=== PATIENT | male | born 1940 | race Caucasian/White ===

== ENCOUNTER 2020-11-22 20:33 | Inpatient (IN) ==
[2020-11-22] MEDS ORDERED: HYDROCODONE/ACETAMOPHEN 5/325MG TAB PO STA (21:17)
[2020-11-22 23:07] LABS: Appearance Urine Cloudy (Clear); Bilirubin Urine Negative (Negative); Blood Urine 3+ (Negative); Color Urine Red; Glucose Urine UA Trace (Negative); Ketones Urine Negative (Negative); Leukocyte Esterase Urine Trace (Negative); Nitrite Urine Negative (Negative); Protein Urine 3+ (Negative); Urobilinogen Urine Negative (Negative); pH Urine 7.5 (4.5-7.5)
[2020-11-22 23:13] LABS: RBC Urine >30 /hpf (0-4)
[2020-11-22 23:14] LABS: WBC Urine >30 /hpf (0-5)
[2020-11-22 23:15] LABS: Bacteria Urine 1+ (Negative)
[2020-11-23 01:21] LABS: Basophils # (auto) 0.01 K/uL (0-0.2); Basophils % (auto) 0.1 %; Eosinophils # (auto) 0.15 K/uL (0-0.5); Eosinophils % (auto) 1.6 %; Hematocrit (blood only) 23.5 % (42-52); Hemoglobin 7.5 g/dL (14.0-18.0); Immature Granulocytes # (auto) 0.06 K/uL (0.00-0.02); Immature Granulocytes % (auto) 0.6 %; Lymphocytes # (auto) 0.91 K/uL (1.2-3.4); Lymphocytes % (auto) 9.5 %; Mean Corpuscular Hemoglobin 30.1 pg (25-34); Mean Corpuscular Hgb Conc 31.9 g/dL (32-36); Mean Corpuscular Volume 94.4 fL (80-100); Monocytes # (auto) 0.58 K/uL (0.11-0.59); Neutrophils # (auto) 7.89 K/uL (1.4-6.5); Neutrophils % (auto) 82.2 %; Platelet Count 157 K/uL (130-400); RDW Coefficient of Variation 15.7 % (11.5-14.5); RDW Standard Deviation 53.7 fL (36.4-46.3); Red Blood Count 2.49 M/uL (4.7-6.1)
--- NOTE | 2020-11-23 01:22 | Emergency Department Note ---
Impression & Plan Acute urinary retention ED Provider Note INFORMANT: Patient and significant other ED PROVIDER(S): Alejandro Jacobson MD CHIEF COMPLAINT: Urinary retention PLAN: Disposition: Admitted Condition: Good Outpatient prescription management: none Referral: None MEDICAL DECISION MAKING: Patient presented because of urinary retention. Bladder scan revealed almost 800 mL of urine. A Jimenez catheter was placed by nursing. He had significant blood and blood clots present. This obstructed the catheter. He had multiple irrigation attempts performed. Significant clot was resulted each time. The patient did feel better. He did request analgesia was given an oral [place]. The patient had renal insufficiency noted on his blood work. He does not feel well enough to go home and is concerned about the catheter blocking. The patient's catheter did require additional flushing. I suspect he has a significant amount of bleeding of blood clots in the bladder and this is causing the catheter obstruction. Consultation was made with Dr. Bravo of urology. He recommended supportive care, admission and every hour bladder irrigations if necessary. Patient will be seen in consultation. Consultation was made with Dr. Froylan Abdul of the [facility] service. Patient was evaluated in the ER for further management. Triage Nursing notes reviewed and agree them. Vital Signs: reviewed and remarkable for no significant abnormalities Differential diagnosis: obstruction, dehydration, urinary tract infection, urinary retention, acute kidney injury, as well as other pathologies. Diagnostics interpreted by me: ECG: none Cardiac Monitoring: none Imaging studies: None ordered HPI: The patient is a 80 year old male who presents to the Emergency Room with complaints of inability to void. This started this morning and is persisting throughout the day. The patient also notes the following associated symptoms, blood and blood clots in the urine. The patient has found no relieving factors. Current pain is rated as 7/10. Patient states he is unable to void and has developed suprapubic abdominal discomfort and bloating. Pt denies LOC, headache, fevers, chills, diaphoresis, visual changes, neck pain, chest pain, breathing difficulties, nausea, vomiting, abdominal pain, back pain, melena, hematochezia, urinary symptoms, numbness, weakness, lymphadenopathy, rash, or other complaints. ROS: See above HPI for pertinent positives & negatives. A total of 10 systems reviewed and were otherwise negative. PAST MEDICAL HISTORY:See Below , end-stage renal disease, hypertension PAST SURGICAL HISTORY:See Below, kidney transplant FAMILY HISTORY:See Below SOCIAL HISTORY:See Below, former smoker HOME MEDICATIONS:See Below ALLERGIES:See Below VITALS:See below PHYSICAL EXAMINATION: GENERAL: Awake, alert, uncomfortable-appearing, in no distress HENT: Normocephalic, atraumatic. Oropharynx unremarkable. EYES: Normal conjunctiva. Sclera non-icteric. NECK: Inspection normal. Non-tender. Supple. No nuchal rigidity. FROM. No masses. RESPIRATORY: Clear to auscultation. No wheezes. No rales. Normal respiratory effort. CARDIAC: Normal rate. Normal rhythm. No murmurs. No rubs. Extremities warm and well perfused. Pulses equal. No JVD. GI: Soft, non-distended. Suprapubic tenderness to palpation. No rebound or guarding. No masses. RECTAL: Deferred. : Normal male. MUSCULOSKELETAL: Atraumatic. Chest examination reveals no tenderness. The back is symmetrical on inspection without obvious abnormality. There is no CVA tenderness to palpation. No joint edema. LOWER EXTREMITIES: Calves are equal size bilaterally and non-tender. No edema. No discoloration. NEURO: Normal sensorium. No sensory or motor deficits noted. SKIN: No rash or jaundice noted. Alejandro Jacobson MD Past Med/Surg History Medical History Arthritis Calcaneus fracture Diabetes Gout Heart trouble Hypertension Kidney failure Kidney stones Pacemaker Seizure Surgical History H/O left knee surgery H/O umbilical hernia repair History of carpal tunnel surgery History of heart artery stent History of left knee replacement Kidney transplant recipient Previous back surgery S/P trigger finger release Family History Mother Diabetes Hypertension Father Diabetes Hypertension Brother Diabetes Hypertension Cancer Sister Diabetes Hypertension Cancer Social History Smoking Status: Former smoker Hx Alcohol Use: No Preferred Language: Maori Feels Safe at Home: Yes Allergies Allergies Allergy/AdvReac Type Severity Reaction Status Date / Time lisinopril Allergy Unknown ORAL EDEMA Verified 11/23/20 00:58 Uhghrrm-Ygl-Pzj Reductase AdvReac Intermediate MUSCLE Verified 11/23/20 00:58 Inhibitor WEAKNESS NSAIDS (Non-Steroidal AdvReac Unknown KIDNEY Verified 11/23/20 00:58 Anti-Inflamma TRANSPLANT Home Meds Home Medications Medication Instructions Recorded Confirmed allopurinol 300 mg tablet 150 mg PO DAILY tab 11/03/20 11/23/20 amlodipine 5 mg tablet 5 mg PO DAILY 11/03/20 11/23/20 aspirin 81 mg tablet,delayed 81 mg PO DAILY 11/03/20 11/23/20 release (Adult Low Dose Aspirin) carvedilol 3.125 mg tablet 3.125 mg PO DAILY tab 11/03/20 11/23/20 cholecalciferol (vitamin D3) 50 50 mcg PO DAILY 11/03/20 11/23/20 mcg (2,000 unit) capsule ezetimibe 10 mg tablet (Zetia) 10 mg PO DAILY 11/03/20 11/23/20 lamotrigine 25 mg tablet 50 mg PO BID tab 11/03/20 11/23/20 mycophenolate mofetil 250 mg 750 mg PO BID cap 11/03/20 11/23/20 capsule (CellCept) omeprazole 20 mg capsule,delayed 20 mg PO DAILY 11/03/20 11/23/20 release primidone 50 mg tablet 100 mg PO BID tab 11/03/20 11/23/20 sertraline 25 mg tablet (Zoloft) 25 mg PO DAILY 11/03/20 11/23/20 sulfamethoxazole 400 1 tab PO 3XWK tab 11/03/20 11/23/20 mg-trimethoprim 80 mg tablet (Bactrim) tacrolimus 1 mg capsule, 2 mg PO Q12H cap 11/03/20 11/23/20 immediate-release (Prograf) tamsulosin 0.4 mg capsule 0.4 mg PO DAILY 11/03/20 11/23/20 torsemide 20 mg tablet 40 mg PO DAILY tab 11/03/20 11/23/20 insulin NPH isoph U-100 human 100 15 unit SUBCUT BID 11/23/20 11/23/20 unit/mL (3 mL) subcutaneous pen (Novolin N Flexpen) insulin regular human 100 unit/mL 1 sliding scale dose SUBCUT 11/23/20 11/23/20 (3 mL) subcutaneous pen (Novolin R USEASDIRECTD Flexpen) Previous Rx's Medication Instructions Recorded finasteride 5 mg tablet 5 mg PO DAILY #90 tab 11/15/20 fluconazole 200 mg tablet 100 mg PO DAILY #4 tab 11/22/20 (Diflucan) Results & Data (ED) Vital Signs Vital Signs - 24 hr 11/22/20 20:36 11/22/20 22:13 11/23/20 00:29 Temperature 36.5 C 36.5 C Temperature Source Temporal Artery Scan Oral Pulse Rate 81 Pulse Rate [Left Radial] 63 60 Respiratory Rate 24 22 22 Blood Pressure 134/60 Blood Pressure [Right Arm] 161/57 H 130/85 Blood Pressure Mean 84 Blood Pressure Mean [Right Arm] 91 100 Pulse Oximetry 100 95 95 Oxygen Delivery Method Nasal Cannula Nasal Cannula Nasal Cannula Oxygen Flow Rate 3 3 3 Sepsis New/Unexplained Change in Mental Status N/A Sepsis Action Taken by Nursing No Action Required 11/23/20 01:08 11/23/20 02:11 Temperature Temperature Source Pulse Rate 81 Pulse Rate [Left Radial] 75 Respiratory Rate 22 22 Blood Pressure Blood Pressure [Right Arm] 140/92 Blood Pressure Mean Blood Pressure Mean [Right Arm] 108 Pulse Oximetry 95 95 Oxygen Delivery Method Nasal Cannula Nasal Cannula Oxygen Flow Rate 3 3 Sepsis New/Unexplained Change in Mental Status Sepsis Action Taken by Nursing Laboratory Data Result diagrams: 11/23/20 00:58 11/23/20 00:58 Lab Results 11/22/20 11/23/20 11/23/20 Range/Units 22:27 00:58 00:58 WBC 9.60 (4.8-10.8) K/uL RBC 2.49 L (4.7-6.1) M/uL Hgb 7.5 L (14.0-18.0) g/dL Hct 23.5 L (42-52) % MCV 94.4 (80-100) fL MCH 30.1 (25-34) pg MCHC 31.9 L (32-36) g/dL RDW Std Deviation 53.7 H (36.4-46.3) fL RDW Coeff of Bandar 15.7 H (11.5-14.5) % Plt Count 157 (130-400) K/uL MPV 9.0 (7.4-10.4) fL Immature Gran % (Auto) 0.6 % Neut % (Auto) 82.2 % Lymph % (Auto) 9.5 % [facility] % (Auto) 6.0 % Eos % (Auto) 1.6 % Baso % (Auto) 0.1 % Neut # (Auto) 7.89 H (1.4-6.5) K/uL Lymph # (Auto) 0.91 L (1.2-3.4) K/uL [place] # (Auto) 0.58 (0.11-0.59) K/uL Eos # (Auto) 0.15 (0-0.5) K/uL Baso # (Auto) 0.01 (0-0.2) K/uL Immature Gran # (Auto) 0.06 H (0.00-0.02) K/uL Ovalocytes 1+ PT 10.7 (9.0-12.0) Seconds INR 1.1 (0.9-1.1) Sodium (136-145) mmol/L Potassium (3.5-5.1) mmol/L Chloride (98-107) mmol/L Carbon Dioxide (21-32) mmol/L Anion Gap (3-11) BUN (7-18) mg/dl Creatinine (0.6-1.4) mg/dl Est Cr Clr Drug Dosing ml/min Est GFR ( Amer) ml/min Est GFR (Non-Af Amer) ml/min BUN/Creatinine Ratio (10-20) Glucose (70-99) mg/dl Calcium (8.5-10.1) mg/dl Total Bilirubin (0.2-1) mg/dl AST (15-37) U/L ALT (12-78) U/L Alkaline Phosphatase (45-117) U/L Total Protein (6.4-8.2) gm/dl Albumin (3.4-5.0) gm/dl Globulin (2.5-4.0) gm/dl Albumin/Globulin Ratio (0.9-2) Urine Color Red Urine Appearance Cloudy A (Clear) Urine pH 7.5 (4.5-7.5) Ur Specific [place] 1.020 (1.000-1.030) Urine Protein 3+ H (Negative) Urine Glucose (UA) Trace H (Negative) Urine Ketones Negative (Negative) Urine Blood 3+ H (Negative) Urine Nitrite Negative (Negative) Urine Bilirubin Negative (Negative) Urine Urobilinogen Negative (Negative) Ur Leukocyte Esterase Trace H (Negative) Urine RBC >30 H (0-4) /hpf Urine WBC >30 H (0-5) /hpf Ur Epithelial Cells 5-10 H (0-5) /lpf Urine Bacteria 1+ H (Negative) COVID-19 Eval Order SARS-CoV-2 (PCR) (Negative) 11/23/20 11/23/20 11/23/20 Range/Units 00:58 01:33 01:33 WBC (4.8-10.8) K/uL RBC (4.7-6.1) M/uL Hgb (14.0-18.0) g/dL Hct (42-52) % MCV (80-100) fL MCH (25-34) pg MCHC (32-36) g/dL RDW Std Deviation (36.4-46.3) fL RDW Coeff of [place] (11.5-14.5) % Plt Count (130-400) K/uL MPV (7.4-10.4) fL Immature Gran % (Auto) % Neut % (Auto) % Lymph % (Auto) % [place] % (Auto) % Eos % (Auto) % Baso % (Auto) % Neut # (Auto) (1.4-6.5) K/uL Lymph # (Auto) (1.2-3.4) K/uL [place] # (Auto) (0.11-0.59) K/uL Eos # (Auto) (0-0.5) K/uL Baso # (Auto) (0-0.2) K/uL Immature Gran # (Auto) (0.00-0.02) K/uL Ovalocytes PT (9.0-12.0) Seconds INR (0.9-1.1) Sodium 137 (136-145) mmol/L Potassium 4.8 (3.5-5.1) mmol/L Chloride 106 (98-107) mmol/L Carbon Dioxide 20 L (21-32) mmol/L Anion Gap 11.0 (3-11) BUN 44 H (7-18) mg/dl Creatinine 6.26 H* (0.6-1.4) mg/dl Est Cr Clr Drug Dosing 11.3 ml/min Est GFR ( Amer) 9.1 ml/min Est GFR (Non-Af Amer) 7.8 ml/min BUN/Creatinine Ratio 7.0 L (10-20) Glucose 198 H (70-99) mg/dl Calcium 8.7 (8.5-10.1) mg/dl Total Bilirubin 0.4 (0.2-1) mg/dl AST 4 L (15-37) U/L ALT 10 L (12-78) U/L Alkaline Phosphatase 108 (45-117) U/L Total Protein 6.3 L (6.4-8.2) gm/dl Albumin 3.2 L (3.4-5.0) gm/dl Globulin 3.1 (2.5-4.0) gm/dl Albumin/Globulin Ratio 1.0 (0.9-2) Urine Color Urine Appearance (Clear) Urine pH (4.5-7.5) Ur Specific [place] (1.000-1.030) Urine Protein (Negative) Urine Glucose (UA) (Negative) Urine Ketones (Negative) Urine Blood (Negative) Urine Nitrite (Negative) Urine Bilirubin (Negative) Urine Urobilinogen (Negative) Ur Leukocyte Esterase (Negative) Urine RBC (0-4) /hpf Urine WBC (0-5) /hpf Ur Epithelial Cells (0-5) /lpf Urine Bacteria (Negative) COVID-19 Eval Order Covid19 at [facility] SARS-CoV-2 (PCR) NEGATIVE (Negative) Administered Medications Discontinued Medications Hydrocodone Bitart/Acetaminophen (Hydrocodone/Acetamophen 5/325mg Tab) 1 tab PO NOW STA Stop: 11/22/20 21:18 Last Admin: 11/22/20 21:20 Dose: 1 tab Documented by: [id number] Discharge Plan Visit Data Chief Complaint: Unable to Void Stated Complaint: BLEEDING ED Provider: Alejandro Jacobson Discharge Problem: Acute urinary retention Forms Stand Alone Forms: My [facility] [place] Prescriptions Prescriptions: No Action finasteride 5 mg tablet 5 mg PO DAILY Qty: 90 RF: 3 fluconazole [Diflucan] 200 mg tablet 100 mg PO DAILY Qty: 4 RF: 0 mycophenolate mofetil [CellCept] 250 mg capsule 750 mg PO BID RF: 0 tacrolimus [Prograf] 1 mg capsule 2 mg PO Q12H RF: 0 torsemide 20 mg tablet 40 mg PO DAILY RF: 0 omeprazole 20 mg capsule,delayed release(DR/EC) 20 mg PO DAILY RF: 0 allopurinol 300 mg tablet 150 mg PO DAILY RF: 0 ezetimibe [Zetia] 10 mg tablet 10 mg PO DAILY RF: 0 tamsulosin 0.4 mg capsule 0.4 mg PO DAILY RF: 0 carvedilol 3.125 mg tablet 3.125 mg PO DAILY RF: 0 amlodipine 5 mg tablet 5 mg PO DAILY RF: 0 sertraline [Zoloft] 25 mg tablet 25 mg PO DAILY RF: 0 sulfamethoxazole-trimethoprim [Bactrim] 400-80 mg tablet 1 tab PO 3XWK RF: 0 lamotrigine 25 mg tablet 50 mg PO BID RF: 0 primidone 50 mg tablet 100 mg PO BID RF: 0 aspirin [Adult Low Dose Aspirin] 81 mg tablet,delayed release (DR/EC) 81 mg PO DAILY RF: 0 cholecalciferol (vitamin D3) 50 mcg (2,000 unit) capsule 50 mcg PO DAILY RF: 0 Novolin R Flexpen 100 unit/mL (3 mL) Insulin Pen 1 sliding scale dose SUBCUT USEASDIRECTD RF: 0 Novolin N Flexpen 100 unit/mL (3 mL) Insulin Pen 15 unit SUBCUT BID RF: 0 Referrals Referrals: Henny Stevens M.D. [Primary Care Provider] -
[2020-11-23 01:41] LABS: Ovalocytes 1+
[2020-11-23 01:43] LABS: INR 1.1 (0.9-1.1); Prothrombin Time 10.7 Seconds (9.0-12.0)
[2020-11-23 01:52] LABS: Albumin Level 3.2 gm/dl (3.4-5.0); Bilirubin,Total 0.4 mg/dl (0.2-1); Calcium 8.7 mg/dl (8.5-10.1); Creatinine Clr Calc Pharmacy 11.3 ml/min; Est GFR (African American) 9.1 ml/min; Est GFR (Non-African American) 7.8 ml/min; Globulin 3.1 gm/dl (2.5-4.0); Potassium 4.8 mmol/L (3.5-5.1); Total Protein 6.3 gm/dl (6.4-8.2)
[2020-11-23] MEDS ORDERED: TAMSULOSIN HCL 0.4 MG CAP PO ONE (02:48)
--- NOTE | 2020-11-23 02:59 | History & Physical Report ---
Date of Service November 23, 2020 Assessment & Plan (1) Acute urinary retention: Plan: Acute urine retention/BPH with LUTS/status post recent outpatient urologic procedure- Hold aspirin Increase tamsulosin from 0.4 to 0.8 mg and change to bedtime Continue Jimenez catheter with irrigations every hour as needed Follow urine culture and sensitivity Ceftriaxone 1 g IV daily Consult urology Dr. Bravo (2) Benign prostatic hyperplasia (BPH) with urinary urgency: Plan: See above (3) Kidney failure: Plan: Kidney failure/kidney transplant recipient/ESRD on HD- Continue tacrolimus/Bactrim DS/mycophenolate Consult nephrology Dr. Gayle, as patient receives dialysis on Sunday, and Sunday, and therefore will need dialysis 11/23 (4) Kidney transplant recipient: Plan: See above (5) Hypertension: Plan: Hypertension-continue M-mode pain, carvedilol Hold torsemide (6) Gout: Plan: Continue allopurinol, but adjust dosing for renal clearance (7) Diabetes: Plan: Continue NPH 15 units subcu twice daily Hold regular human sliding scale Place on Accu-Cheks before meals and at bedtime with NovoLog coverage per scale Check hemoglobin A1c (8) Seizure: Plan: Continue primidone and lamotrigine (9) Sheri glabrata infection: Plan: Sheri glabrata UTI- Patient was just notified a few days ago, does not have a chance to start fluconazole yet. He is to receive 4 doses of fluconazole 100 mg following each of the next 4 dialysis treatments History of Present Illness Chief Complaint: The patient presents to the emergency department with urinary retention, and after bladder scan revealed 800 mils of urine, a Jimenez catheter was placed, with frequent irrigation due to significant blood and blood clots present Primary Care Provider: Henny Stevens The patient is a 80-year-old male with a past medical history include noting BPH with LUTS, kidney transplant recipient, kidney failure, ESRD on HD on Sunday//Sunday, gout, diabetes mellitus, pacemaker presence, hy pertension, hyperlipidemia, GERD, depression, edema, and recent diagnosis with Sheri glabrata UTI. The patient presents with symptoms as noted above. Urology Dr. Bravo was consulted by the ED, and he advised admission to medicine service, and that he would see the patient in the a.m. Allergies Allergy/AdvReac Type Severity Reaction Status Date / Time lisinopril Allergy Unknown ORAL EDEMA Verified 11/23/20 00:58 Eqlrgla-Oeg-Ewd Reductase AdvReac Intermediate MUSCLE Verified 11/23/20 00:58 Inhibitor WEAKNESS NSAIDS (Non-Steroidal AdvReac Unknown KIDNEY Verified 11/23/20 00:58 Anti-Inflamma TRANSPLANT Home Medications Medication Instructions Recorded Confirmed Type allopurinol 300 mg tablet 150 mg PO DAILY tab 11/03/20 11/23/20 History amlodipine 5 mg tablet 5 mg PO DAILY 11/03/20 11/23/20 History aspirin 81 mg tablet,delayed 81 mg PO DAILY 11/03/20 11/23/20 History release (Adult Low Dose Aspirin) carvedilol 3.125 mg tablet 3.125 mg PO DAILY tab 11/03/20 11/23/20 History cholecalciferol (vitamin D3) 50 50 mcg PO DAILY 11/03/20 11/23/20 History mcg (2,000 unit) capsule ezetimibe 10 mg tablet (Zetia) 10 mg PO DAILY 11/03/20 11/23/20 History lamotrigine 25 mg tablet 50 mg PO BID tab 11/03/20 11/23/20 History mycophenolate mofetil 250 mg 750 mg PO BID cap 11/03/20 11/23/20 History capsule (CellCept) omeprazole 20 mg capsule,delayed 20 mg PO DAILY 11/03/20 11/23/20 History release primidone 50 mg tablet 100 mg PO BID tab 11/03/20 11/23/20 History sertraline 25 mg tablet (Zoloft) 25 mg PO DAILY 11/03/20 11/23/20 History sulfamethoxazole 400 1 tab PO 3XWK tab 11/03/20 11/23/20 History mg-trimethoprim 80 mg tablet (Bactrim) tacrolimus 1 mg capsule, 2 mg PO Q12H cap 11/03/20 11/23/20 History immediate-release (Prograf) tamsulosin 0.4 mg capsule 0.4 mg PO DAILY 11/03/20 11/23/20 History torsemide 20 mg tablet 40 mg PO DAILY tab 11/03/20 11/23/20 History finasteride 5 mg tablet 5 mg PO DAILY #90 tab 11/15/20 11/23/20 Rx fluconazole 200 mg tablet 100 mg PO DAILY #4 tab 11/22/20 11/23/20 Rx (Diflucan) insulin NPH isoph U-100 human 100 15 unit SUBCUT BID 11/23/20 11/23/20 History unit/mL (3 mL) subcutaneous pen (Novolin N Flexpen) insulin regular human 100 unit/mL 1 sliding scale dose SUBCUT 11/23/20 11/23/20 History (3 mL) subcutaneous pen (Novolin R USEASDIRECTD Flexpen) Past Med/Surg History Medical History (Updated 11/23/20 @ 05:13 by Froylan Abdul MD) Arthritis Calcaneus fracture Diabetes Gout Heart trouble Hypertension Kidney failure Kidney stones Pacemaker Seizure Surgical History H/O left knee surgery H/O umbilical hernia repair History of carpal tunnel surgery History of heart artery stent History of left knee replacement Kidney transplant recipient Previous back surgery S/P trigger finger release Family History Mother Diabetes Hypertension Father Diabetes Hypertension Brother Diabetes Hypertension Cancer Sister Diabetes Hypertension Cancer Social History Smoking Status: Former smoker Hx Alcohol Use: No Preferred Language: Hungarian Feels Safe at Home: Yes Review of Systems Review of Systems: The patient denies chest pain, palpitations, cough, sore throat, fevers, chills, sweats, vomiting, diarrhea , constipation, abdominal pain, pelvic pain, blood in stool, lightheadedness, dizziness, headache, memory loss, loss of consciousness, rash, abnormal bruising or bleeding, imbalance, focal weakness, numbness or tingling in arms or legs, generalized arthralgias or myalgias, back or neck pain, or night sweats. The review of systems is otherwise negative other than for that already noted above, and at least 10 systems have been reviewed. Physical Exam Physical Exam: The patient is awake, alert and oriented 3, well developed and well nourished, normocephalic and atraumatic, lying in bed and in no acute distress. HEENT--PERRL, EOMI, mucous membranes and oropharynx normal. Neck--supple. No JVD. No bruits. Thyroid normal, trachea midline, no adenopathy. Heart--normal S1 and S2. No murmurs, rubs or gallops. Lungs--clear bilaterally, no respiratory distress, no accessory muscle use. Abdomen--normal bowel sounds and soft. Mild suprapubic tenderness. Extremities--Trace bilateral pretibial pitting edema Dermatologic--normal skin turgor, normal color, no abnormal lymph nodes, no rash. Neurologic--cranial nerves II through XII grossly intact. Rheumatologic--normal range of motion. Psychiatric--normal affect. Results & Data Results & Data ([facility]) Vital Signs (Past 12 Hours) Vital Signs Temp Pulse Pulse Resp BP BP Pulse Ox 11/23/20 02:11 75 22 140/92 95 11/23/20 01:08 81 22 95 11/23/20 00:29 97.7 F 60 22 130/85 95 11/22/20 22:13 63 22 161/57 H 95 11/22/20 20:36 97.7 F 81 24 134/60 100 Laboratory Results Laboratory Results WBC 9.60 K/uL (4.8-10.8) 11/23/20 00:58 RBC 2.49 M/uL (4.7-6.1) L 11/23/20 00:58 Hgb 7.5 g/dL (14.0-18.0) L 11/23/20 00:58 Hct 23.5 % (42-52) L 11/23/20 00:58 MCV 94.4 fL (80-100) 11/23/20 00:58 MCH 30.1 pg (25-34) 11/23/20 00:58 MCHC 31.9 g/dL (32-36) L 11/23/20 00:58 RDW Std Deviation 53.7 fL (36.4-46.3) H 11/23/20 00:58 RDW Coeff of Bandar 15.7 % (11.5-14.5) H 11/23/20 00:58 Plt Count 157 K/uL (130-400) 11/23/20 00:58 MPV 9.0 fL (7.4-10.4) 11/23/20 00:58 Immature Gran % (Auto) 0.6 % 11/23/20 00:58 Neut % (Auto) 82.2 % 11/23/20 00:58 Lymph % (Auto) 9.5 % 11/23/20 00:58 [place] % (Auto) 6.0 % 11/23/20 00:58 Eos % (Auto) 1.6 % 11/23/20 00:58 Baso % (Auto) 0.1 % 11/23/20 00:58 Neut # (Auto) 7.89 K/uL (1.4-6.5) H 11/23/20 00:58 Lymph # (Auto) 0.91 K/uL (1.2-3.4) L 11/23/20 00:58 [place] # (Auto) 0.58 K/uL (0.11-0.59) 11/23/20 00:58 Eos # (Auto) 0.15 K/uL (0-0.5) 11/23/20 00:58 Baso # (Auto) 0.01 K/uL (0-0.2) 11/23/20 00:58 Immature Gran # (Auto) 0.06 K/uL (0.00-0.02) H 11/23/20 00:58 Ovalocytes 1+ 11/23/20 00:58 PT 10.7 Seconds (9.0-12.0) 11/23/20 00:58 INR 1.1 (0.9-1.1) 11/23/20 00:58 Sodium 137 mmol/L (136-145) 11/23/20 00:58 Potassium 4.8 mmol/L (3.5-5.1) 11/23/20 00:58 Chloride 106 mmol/L (98-107) 11/23/20 00:58 Carbon Dioxide 20 mmol/L (21-32) L 11/23/20 00:58 Anion Gap 11.0 (3-11) 11/23/20 00:58 BUN 44 mg/dl (7-18) H 11/23/20 00:58 Creatinine 6.26 mg/dl (0.6-1.4) H* 11/23/20 00:58 Est Cr Clr Drug Dosing 11.3 ml/min 11/23/20 00:58 Est GFR ( Amer) 9.1 ml/min 11/23/20 00:58 Est GFR (Non-Af Amer) 7.8 ml/min 11/23/20 00:58 BUN/Creatinine Ratio 7.0 (10-20) L 11/23/20 00:58 Glucose 198 mg/dl (70-99) H 11/23/20 00:58 Calcium 8.7 mg/dl (8.5-10.1) 11/23/20 00:58 Total Bilirubin 0.4 mg/dl (0.2-1) 11/23/20 00:58 AST 4 U/L (15-37) L 11/23/20 00:58 ALT 10 U/L (12-78) L 11/23/20 00:58 Alkaline Phosphatase 108 U/L (45-117) 11/23/20 00:58 Total Protein 6.3 gm/dl (6.4-8.2) L 11/23/20 00:58 Albumin 3.2 gm/dl (3.4-5.0) L 11/23/20 00:58 Globulin 3.1 gm/dl (2.5-4.0) 11/23/20 00:58 Albumin/Globulin Ratio 1.0 (0.9-2) 11/23/20 00:58 Urine Color Red 11/22/20 22:27 Urine Appearance Cloudy (Clear) A 11/22/20 22:27 Urine pH 7.5 (4.5-7.5) 11/22/20 22:27 Ur Specific [place] 1.020 (1.000-1.030) 11/22/20 22:27 Urine Protein 3+ (Negative) H 11/22/20 22:27 Urine Glucose (UA) Trace (Negative) H 11/22/20 22:27 Urine Ketones Negative (Negative) 11/22/20 22:27 Urine Blood 3+ (Negative) H 11/22/20 22:27 Urine Nitrite Negative (Negative) 11/22/20 22: Urine Bilirubin Negative (Negative) 11/22/20 22:27 Urine Urobilinogen Negative (Negative) 11/22/20 22:27 Ur Leukocyte Esterase Trace (Negative) H 11/22/20 22:27 Urine RBC >30 /hpf (0-4) H 11/22/20 22:27 Urine WBC >30 /hpf (0-5) H 11/22/20 22:27 Ur Epithelial Cells 5-10 /lpf (0-5) H 11/22/20 22:27 Urine Bacteria 1+ (Negative) H 11/22/20 22:27 COVID-19 Eval Order Covid19 at [facility] 11/23/20 01:33 SARS-CoV-2 (PCR) NEGATIVE (Negative) 11/23/20 01:33 Code Status & VTE Plan Code Status Full code VTE Prophylaxis Plan VTE Prophylaxis will be ordered: Yes PG Care Time/CCT Total # of Minutes Spent Total Time Spent with Patient: Total time spent is greater than 50% in coordination of care (as documented) at patient's floor/unit and/or counseling patient: Coding Level of Care Code 19242 Initial Inpt Care Lvl 3 Diagnoses Acute urinary retention R33.8 Benign prostatic hyperplasia (BPH) with urinary urgency N40.1; R39.15 Kidney transplant recipient Z94.0 Kidney failure N19 Hypertension I10 Gout M10.9 Diabetes E11.9 Seizure R56.9 Sheri glabrata infection B37.9
[2020-11-23] MEDS ORDERED: TAMSULOSIN HCL 0.4 MG CAP ONE (03:06)
[2020-11-23] MEDS ORDERED: ONDANSETRON INJ 2 MG/ML 2 ML VIAL IV PRN ×2 (03:51→11:16)
[2020-11-23] MEDS ORDERED: CARBOHYDRATES FOR HYPOGLYCEMIA PO PRN (03:51)
[2020-11-23] MEDS ORDERED: GLUCOSE 40% GEL 15 GM TUBE PO PRN (03:51)
[2020-11-23] MEDS ORDERED: DEXTROSE 50% 50 ML SYRINGE IV PRN (03:51)
[2020-11-23] MEDS ORDERED: GLUCAGON FOR INJ 1 MG VIAL SQ PRN (03:51)
[2020-11-23] MEDS ORDERED: GLUCOSE 10 TABS/TUBE PO PRN (03:51)
[2020-11-23] MEDS ORDERED: ACETAMINOPHEN 325 MG TAB PO PRN (03:51)
[2020-11-23] MEDS ORDERED: SODIUM CHLORIDE 0.9% 500 ML IV SCH (05:15)
[2020-11-23] MEDS: MoRPHine SULFATE 2 MG/ML CARP IV PRN ×3 (05:55→23:16)
[2020-11-23] MEDS: cefTRIAXone SODIUM 2,000 MG in DEXTROSE 5% 50 ML IV SCH (06:38)
[2020-11-23] MEDS ORDERED: HYDROmorphone INJ 0.5 MG/0.5 ML SYR IV STA (08:08)
--- NOTE | 2020-11-23 08:08 | Urology Consultation ---
Date of Consultation November 23, 2020 Assessment & Plan (1) Acute urinary retention: (2) Benign prostatic hyperplasia (BPH) with urinary urgency: 80yo M with multiple medical comorbidities including renal transplant, admitted with acute urinary retention - Hx of BPH w/LUTS and s/p recent outpatient cystoscopy on 11/15. - CT imaging reviewed - Irregular hyperdensity in the bladder, consistent with hemorrhagic product/clot burden. - Afebrile. - Labs reviewed - Wbc 9.60 and creatinine elevated to 6.26. Hemoglobin 6.9. - UCx pending - Jimenez catheter intact with minimal bloody drainage - Plan of care reviewed with Dr. Pereira. - Will plan for OR today for Cystoscopy, clot evacuation, and possible TURP depending on findings. - OR notified. EKG and Chest Xray in chart. On IV Ceftriaxone. Covid test negative. - Keep NPO for procedure today. - Continue to monitor H&H, transfuse as felt necessary per primary team. - Expected clinical course reviewed with patient, he was agreeable to plan, all questions were answered. - Will continue to follow Supervising Physician Co-Signing Physician Notes plan for transfusion now (continue into the OR) plan for clot evacuation and fulguration now History of Present Illness Attending Physician: Eduar Malone DO History of Present Illness 80yo M with multiple medical comorbidities including renal transplant, admitted with acute urinary retention. Past medical history include noting BPH with LUTS, kidney transplant recipient, kidney failure, ESRD on HD on Sunday//Sunday, gout, diabetes mellitus, pacemaker presence, hypertension, hyperlipidemia, GERD, depression, edema, and recent diagnosis with Jim glabrata UTI. The patient presented to the emergency department with urinary retention. A bladder scan revealed 800ml of urine, a Jimenez catheter was placed, revealing significant blood/clots. Multiple irrigation attempts were performed. Patient examined at bedside this AM. Awake, resting in bed on arrival. Patient reports 10/10 suprapubic/abdominal pain, not relieved with IV pain medication. Jimenez catheter intact, with minimal amount of bloody drainage. Nursing attempted multiple bladder irrigations at bedside with minimal return. He denies fevers or chills. No nausea or vomiting. Patient states he has had nothing to eat or drink overnight. Patient recently seen as outpatient in urology clinic by Dr. Sydney. Underwent outpatient cystoscopy on 11/15. Urine culture from 11/15 with jim glabrata. Allergies Allergy/AdvReac Type Severity Reaction Status Date / Time lisinopril Allergy Unknown ORAL EDEMA Verified 11/23/20 00:58 Ixmbljf-Hop-Coq Reductase AdvReac Intermediate MUSCLE Verified 11/23/20 00:58 Inhibitor WEAKNESS NSAIDS (Non-Steroidal AdvReac Unknown KIDNEY Verified 11/23/20 00:58 Anti-Inflamma TRANSPLANT Home Medications Medication Instructions Recorded Confirmed Type allopurinol 300 mg tablet 150 mg PO DAILY tab 11/03/20 11/23/20 History amlodipine 5 mg tablet 5 mg PO DAILY 11/03/20 11/23/20 History aspirin 81 mg tablet,delayed 81 mg PO DAILY 11/03/20 11/23/20 History release (Adult Low Dose Aspirin) carvedilol 3.125 mg tablet 3.125 mg PO DAILY tab 11/03/20 11/23/20 History cholecalciferol (vitamin D3) 50 50 mcg PO DAILY 11/03/20 11/23/20 History mcg (2,000 unit) capsule ezetimibe 10 mg tablet (Zetia) 10 mg PO DAILY 11/03/20 11/23/20 History lamotrigine 25 mg tablet 50 mg PO BID tab 11/03/20 11/23/20 History mycophenolate mofetil 250 mg 750 mg PO BID cap 11/03/20 11/23/20 History capsule (CellCept) omeprazole 20 mg capsule,delayed 20 mg PO DAILY 11/03/20 11/23/20 History release primidone 50 mg tablet 100 mg PO BID tab 11/03/20 11/23/20 History sertraline 25 mg tablet (Zoloft) 25 mg PO DAILY 11/03/20 11/23/20 History sulfamethoxazole 400 1 tab PO 3XWK tab 11/03/20 11/23/20 History mg-trimethoprim 80 mg tablet (Bactrim) tacrolimus 1 mg capsule, 2 mg PO Q12H cap 11/03/20 11/23/20 History immediate-release (Prograf) tamsulosin 0.4 mg capsule 0.4 mg PO DAILY 11/03/20 11/23/20 History torsemide 20 mg tablet 40 mg PO DAILY tab 11/03/20 11/23/20 History finasteride 5 mg tablet 5 mg PO DAILY #90 tab 11/15/20 11/23/20 Rx fluconazole 200 mg tablet 100 mg PO DAILY #4 tab 11/22/20 11/23/20 Rx (Diflucan) insulin NPH isoph U-100 human 100 15 unit SUBCUT BID 11/23/20 11/23/20 History unit/mL (3 mL) subcutaneous pen (Novolin N Flexpen) insulin regular human 100 unit/mL 1 sliding scale dose SUBCUT 11/23/20 11/23/20 History (3 mL) subcutaneous pen (Novolin R USEASDIRECTD Flexpen) Patient History Medical History (Updated 11/23/20 @ 05:13 by Froylan Abdul MD) Arthritis Calcaneus fracture Diabetes Gout Heart trouble Hypertension Kidney failure Kidney stones Pacemaker Seizure Surgical History H/O left knee surgery H/O umbilical hernia repair History of carpal tunnel surgery History of heart artery stent History of left knee replacement Kidney transplant recipient Previous back surgery S/P trigger finger release Family History Mother Diabetes Hypertension Father Diabetes Hypertension Brother Diabetes Hypertension Cancer Sister Diabetes Hypertension Cancer Social History Smoking Status: Former smoker Hx Alcohol Use: No Preferred Language: Macedonian Beliefs That Will Affect Care: None Feels Safe at Home: Yes Review of Systems Review of Systems: All systems reviewed & are unremarkable except as noted in HPI & below Physical Exam Constitutional: + uncomfortable Respiratory: normal respiratory effort and able to speak in complete sentences; no labored breathing and no audible wheezes Gastrointestinal (Abdomen): Inspection/Auscultation: abdomen normal to inspection; abdomen not distended Percussion/Palpation: + abdomen tender (suprapubic tenderness with palpation) and abdomen soft Musculoskeletal: Head/Neck/Chest: normocephalic Skin: No visible rashes or lesions to exposed skin areas Neurologic: moves all extremities and awake Psychiatric: Orientation: alert, oriented x 3 and cooperative Genitourinary: Jimenez catheter intact Results & Data (MN) Vital Signs (Past 12 Hours) Vital Signs Temp Pulse Pulse Resp BP BP Pulse Ox 11/23/20 07:40 36.4 C L 59 L 16 103/56 L 93 11/23/20 03:20 67 18 90/50 L 94 11/23/20 03:00 60 18 88/50 L 11/23/20 02:11 75 22 140/92 95 11/23/20 02:00 84 20 11/23/20 01:13 60 17 11/23/20 01:08 81 22 95 11/23/20 00:29 36.5 C 60 22 130/85 95 11/22/20 22:13 63 22 161/57 H 95 11/22/20 20:36 36.5 C 81 24 134/60 100 PG Care Time/CCT Total # of Minutes Spent Total Time Spent with Patient: Total time spent is greater than 50% in coordination of care (as documented) at patient's floor/unit and/or counseling patient: Coding Level of Care Code 82328 Initial Inpt Care Lvl 3 Diagnoses Acute urinary retention R33.8 Benign prostatic hyperplasia (BPH) with urinary urgency N40.1; R39.15
[2020-11-23 08:11] LABS: Hematocrit (blood only) 21.5 % (42-52); Hemoglobin 6.9 g/dL (14.0-18.0)
[2020-11-23] MEDS: INSULIN ASPART 100 UNITS/ML 3 ML PEN SC SCH ×4 (08:16→21:30)
[2020-11-23] MEDS: INSULIN HUMAN NPH SC SCH ×2 (08:17→17:23)
[2020-11-23] MEDS ORDERED: LIDOCAINE 2% 2 ML VIAL/AMP(20MG/ML) INFIL ONE ×2 (08:18→10:49)
[2020-11-23] MEDS ORDERED: PHENYLEPHRINE 100MCG/ML 5ML SYR ONE ×2 (08:18→10:49)
[2020-11-23] MEDS ORDERED: ONDANSETRON INJ 2 MG/ML 2 ML VIAL ONE ×2 (08:18→10:49)
[2020-11-23] MEDS ORDERED: ePHEDrine sulfate 50 MG/ML SYR ONE ×2 (08:18→10:49)
[2020-11-23] MEDS ORDERED: fentaNYL citrate 100 MCG/2 ML VIAL ONE ×2 (08:18→10:49)
[2020-11-23] MEDS ORDERED: PROPOFOL IV EMULSION 10 MG/ML 20 ML VIAL IV ONE ×2 (08:18→10:49)
--- NOTE | 2020-11-23 08:34 | CT Scan Report ---
CT abd pelvis wo con CLINICAL INDICATION: MN ^increasing urinary retention on bladder scans. TECHNIQUE: Helical axial images of the abdomen and pelvis were obtained and displayed at 5 and 1 mm i ntervals. Automated dose lowering techniques and/or adjustment according to patient size were utilize d for this exam. This exam was performed with intravenous contrast. COMPARISON: None available at the time of this dictation. FINDINGS: Lower chest: Moderate right pleural effusion. Associated atelectasis is noted. Cardiomegaly is seen with pacemaker placement. Liver: Unremarkable. No focal lesions are seen. Gallbladder and biliary tree: Patient is status post cholecystectomy. Physiologic prominence of the b iliary ducts is noted. Pancreas: Fatty replacement of the pancreas is seen. Spleen: Unremarkable. Adrenals: Smooth thickening of the adrenals seen bilaterally. Kidneys and ureters: Negative kidneys are atrophic bilaterally. A transplant kidney in the right lowe r quadrant is seen with mild hydronephrosis. Bladder: There is a large amount of heterogeneous material in the bladder with some gas. A Jimenez cath eter is seen. Bowel: The appendix is unremarkable. There is a small hiatal hernia. Lymph nodes Retroperitoneal: Unremarkable. Mesenteric: Unremarkable. Pelvic: Unremarkable. Reproductive organs: Unremarkable. Peritoneum: Normal Vessels: Atherosclerotic calcifications are seen. Abdominal wall: Unremarkable. Bones: Degenerative changes in the visualized spine. IMPRESSION: 1. Large amount of heterogeneous material in the bladder. This is favored to represent the accumulat ion of blood products. 2. Right lower quadrant renal transplant with mild hydronephrosis which is nonspecific. Clinical cor relation is recommended to exclude transplant failure. 3. Moderate right pleural effusion. ACT 112: Negative or not required by law. Electronically signed by: Garett Briscoe M.D. 11/23/2020 8:33 AM
[2020-11-23 08:39] LABS: Estimated Average Glucose 123 mg/dl; Hemoglobin A1C 5.9 % (4.5-5.6)
[2020-11-23] MEDS ORDERED: SODIUM CHLORIDE 0.9% 250 ML IV PRN (08:45)
[2020-11-23] MEDS ORDERED: ASPIRIN 81 MG ECTAB PO SCH (09:00)
[2020-11-23] MEDS: PANTOprazole 40 MG TAB PO SCH (09:26)
[2020-11-23] MEDS: EZETIMIBE 10 MG TABLET PO SCH (09:26)
[2020-11-23] MEDS: CHOLECALCIFEROL 1,000 UNITS 25 MCG TAB PO SCH (09:26)
[2020-11-23] MEDS: FINASTERIDE 5 MG TAB PO SCH (09:26)
[2020-11-23] MEDS: SERTRALINE HCL 50 MG TABLET PO SCH (09:27)
[2020-11-23] MEDS: amLODIPine BESYLATE 5 MG TAB PO SCH (10:33)
[2020-11-23] MEDS: lamoTRIgine 25 MG TAB PO SCH ×2 (10:33→21:31)
[2020-11-23] MEDS: carvediloL 3.125 MG TAB PO SCH (10:33)
[2020-11-23] MEDS: MYCOPHENOLATE MOFETIL 250 MG CAP PO SCH ×2 (10:34→21:32)
[2020-11-23] MEDS: PRIMIDONE 50 MG TAB PO SCH ×2 (10:34→21:33)
[2020-11-23] MEDS: TACROLIMUS 1 MG CAP PO SCH ×2 (10:34→21:34)
--- NOTE | 2020-11-23 10:51 | Anesthesiology Consultation ---
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 History Surgery Operation Date: 11/23/20 08:20 Proposed Procedures p Cystoscopy, Clot Evacuation - William Pereira MD s Possible Transurethral Resection Prostate - William Pereira MD Height/Weight Height: 5 ft 7 in Weight: 106.9 kg Allergies Allergy/AdvReac Type Severity Reaction Status Date / Time lisinopril Allergy Unknown ORAL EDEMA Verified 11/23/20 00:58 Vmkphmp-Iob-Sdt Reductase AdvReac Intermediate MUSCLE Verified 11/23/20 00:58 Inhibitor WEAKNESS NSAIDS (Non-Steroidal AdvReac Unknown KIDNEY Verified 11/23/20 00:58 Anti-Inflamma TRANSPLANT Medications Home Medications Medication Instructions Recorded Confirmed Last Taken allopurinol 300 mg tablet 150 mg PO DAILY tab 11/03/20 11/23/20 11/22/20 amlodipine 5 mg tablet 5 mg PO DAILY 11/03/20 11/23/20 11/22/20 aspirin 81 mg tablet,delayed 81 mg PO DAILY 11/03/20 11/23/20 11/22/20 release (Adult Low Dose Aspirin) carvedilol 3.125 mg tablet 3.125 mg PO DAILY tab 11/03/20 11/23/20 11/22/20 cholecalciferol (vitamin D3) 50 50 mcg PO DAILY 11/03/20 11/23/20 11/22/20 mcg (2,000 unit) capsule ezetimibe 10 mg tablet (Zetia) 10 mg PO DAILY 11/03/20 11/23/20 11/22/20 lamotrigine 25 mg tablet 50 mg PO BID tab 11/03/20 11/23/20 11/22/20 mycophenolate mofetil 250 mg 750 mg PO BID cap 11/03/20 11/23/20 11/22/20 capsule (CellCept) omeprazole 20 mg capsule,delayed 20 mg PO DAILY 11/03/20 11/23/20 11/22/20 release primidone 50 mg tablet 100 mg PO BID tab 11/03/20 11/23/20 11/22/20 sertraline 25 mg tablet (Zoloft) 25 mg PO DAILY 11/03/20 11/23/20 11/22/20 sulfamethoxazole 400 1 tab PO 3XWK tab 11/03/20 11/23/20 11/22/20 mg-trimethoprim 80 mg tablet (Bactrim) tacrolimus 1 mg capsule, 2 mg PO Q12H cap 11/03/20 11/23/20 11/22/20 immediate-release (Prograf) tamsulosin 0.4 mg capsule 0.4 mg PO DAILY 11/03/20 11/23/20 11/22/20 torsemide 20 mg tablet 40 mg PO DAILY tab 11/03/20 11/23/20 11/22/20 finasteride 5 mg tablet 5 mg PO DAILY #90 tab 11/15/20 11/23/20 11/22/20 fluconazole 200 mg tablet 100 mg PO DAILY #4 tab 11/22/20 11/23/20 11/22/20 (Diflucan) insulin NPH isoph U-100 human 100 15 unit SUBCUT BID 11/23/20 11/23/20 11/22/20 unit/mL (3 mL) subcutaneous pen (Novolin N Flexpen) insulin regular human 100 unit/mL 1 sliding scale dose SUBCUT 11/23/20 11/23/20 11/22/20 (3 mL) subcutaneous pen (Novolin R USEASDIRECTD Flexpen) Active Medications Generic Name Dose Route Start Last Admin Trade Name [place] PRN Reason Stop Dose Admin Amlodipine Besylate 5 mg 11/23/20 09:00 11/23/20 10:33 Amlodipine Besylate 5 Mg Tab PO 12/23/20 08:59 5 mg DAILY RATURO Administration Carvedilol 3.125 mg 11/23/20 08:00 11/23/20 10:33 Carvedilol 3.125 Mg Tab PO 12/23/20 07:59 3.125 mg DAILY@0800 ARTURO Administration Ezetimibe 10 mg 11/23/20 09:00 11/23/20 09:26 Ezetimibe 10 Mg Tablet PO 12/23/20 08:59 Not Given DAILY ARTURO Finasteride 5 mg 11/23/20 09:00 11/23/20 09:26 Finasteride 5 Mg Tab PO 12/23/20 08:59 Not Given DAILY ARTURO Ceftriaxone Sodium 2,000 mg/ 70 mls @ 100 mls/hr 11/23/20 05:00 11/23/20 07:40 Dextrose IV 12/03/20 04:59 Infused Q24H ARTURO Infusion Protocol Sodium Chloride 500 mls @ 60 mls/hr 11/23/20 05:15 11/23/20 09:41 Nss IV 11/23/20 13:34 0 mls/hr .Q8H20M ARTURO Infusion Insulin Aspart 0 units 11/23/20 07:30 11/23/20 08:16 Insulin Aspart 100 Units/Ml 3 Ml Pen SC 12/23/20 07:29 3 units ACHS ARTURO Administration Insulin Human NPH 15 units 11/23/20 08:00 11/23/20 08:17 Insulin Human Nph SC 12/23/20 07:59 15 units BIDM ARTURO Administration Lamotrigine 50 mg 11/23/20 09:00 11/23/20 10:33 Lamotrigine 25 Mg Tab PO 12/23/20 08:59 50 mg BID ARTURO Administration Morphine Sulfate 2 mg 11/23/20 05:23 11/23/20 05:55 Morphine Sulfate 2 Mg/Ml Carp IV 12/07/20 05:22 2 mg Q4H PRN Administration Severe Pain Mycophenolate Mofetil 750 mg 11/23/20 09:00 11/23/20 10:34 Mycophenolate Mofetil 250 Mg Cap PO 12/23/20 08:59 750 mg BID ARTURO Administration Pantoprazole Sodium 40 mg 11/23/20 09:00 11/23/20 09:26 Pantoprazole 40 Mg Tab PO 12/23/20 08:59 Not Given DAILY ARTURO Protocol Primidone 100 mg 11/23/20 09:00 11/23/20 10:34 Primidone 50 Mg Tab PO 12/23/20 08:59 100 mg BID ARTURO Administration Sertraline HCl 25 mg 11/23/20 09:00 11/23/20 09:27 Sertraline Hcl 50 Mg Tablet PO 12/23/20 08:59 Not Given DAILY ARTURO Tacrolimus 2 mg 11/23/20 09:00 11/23/20 10:34 Tacrolimus 1 Mg Cap PO 12/23/20 08:59 2 mg Q12 ARTURO Administration Vitamin D 2,000 units 11/23/20 09:00 11/23/20 09:26 Cholecalciferol 1,000 Units 25 Mcg Tab PO 12/23/20 08:59 Not Given DAILY ARTURO Past Medical History Medical History Arthritis Calcaneus fracture Diabetes Gout Heart trouble Hypertension Kidney failure Kidney stones Pacemaker Seizure Past Family History Family History Mother Diabetes Hypertension Father Diabetes Hypertension Brother Diabetes Hypertension Cancer liver and lung CA Sister Diabetes Hypertension Cancer Breast and Uterine CA Past Surgical History Surgical History H/O left knee surgery H/O umbilical hernia repair History of carpal tunnel surgery History of heart artery stent History of left knee replacement Kidney transplant recipient Previous back surgery S/P trigger finger release Social History Smoking Status: Former smoker Hx Alcohol Use: No Physical Exam Vital Signs Last Vital Signs Temp 97.7 F 11/23/20 10:40 Pulse 61 11/23/20 10:40 Resp 18 11/23/20 10:40 BP 133/60 11/23/20 10:40 Pulse Ox 93 11/23/20 07:40 Testing Laboratory Results 11/23/20 07:45 11/23/20 00:58 PT 10.7 Seconds (9.0-12.0) 11/23/20 00:58 INR 1.1 (0.9-1.1) 11/23/20 00:58 Hemoglobin A1c 5.9 % (4.5-5.6) H 11/23/20 07:45 Urine Color Red 11/22/20 22:27 Urine Appearance Cloudy (Clear) A 11/22/20 22:27 Urine pH 7.5 (4.5-7.5) 11/22/20 22:27 Ur Specific [place] 1.020 (1.000-1.030) 11/22/20 22:27 Urine Protein 3+ (Negative) H 11/22/20 22:27 Urine Glucose (UA) Trace (Negative) H 11/22/20 22:27 Urine Ketones Negative (Negative) 11/22/20 22:27 Urine Nitrite Negative (Negative) 11/22/20 22:27 Ur Leukocyte Esterase Trace (Negative) H 11/22/20 22:27 Urine RBC >30 /hpf (0-4) H 11/22/20 22:27 Urine WBC >30 /hpf (0-5) H 11/22/20 22:27 Ur Epithelial Cells 5-10 /lpf (0-5) H 11/22/20 22:27 Blood Type A Positive 11/23/20 07:45 Antibody Screen NEGATIVE 11/23/20 07:45 11/23/20 07:32 POC Glucose 233 H Laboratory Tests 11/23/20 01:33 SARS-CoV-2 (PCR) NEGATIVE Electrocardiogram Date: 09/01/20 ventricular paced rhythm with occasional PVCs, rate 71 bpm
[2020-11-23] MEDS ORDERED: ePHEDrine sulfate 50 MG/ML AMP IV PRN (11:16)
[2020-11-23] MEDS ORDERED: ATROPINE SULFATE 0.1 MG/ML 10ML SYR IV PRN (11:16)
[2020-11-23] MEDS ORDERED: fentaNYL citrate 100 MCG/2 ML VIAL IV PRN (11:16)
--- NOTE | 2020-11-23 12:26 | Operative Report ---
[facility] Post Operative Report Pre & Post Diagnosis Operation Date: 11/23/20 08:20 Pre-Op Diagnosis: Gross Hematuria, Urinary Retention Post-Op Diagnosis: Gross Hematuria, Urinary Retention I identified the patient and participated in the time-out.: Yes Procedure Operation Date: 11/23/20 08:20 Actual Procedures p Cystoscopy, Clot Evacuation(Not Applicable) - William Pereira MD Surgeon Jose Eduardo Pereira MD Diver Helper none Estimated Blood Loss 0 (Evacuated 1 L of old blood) Findings Consistent with Post-Op Diagnosis Specimens none Description of Procedure The patient was identified in the preoperative holding area, appropriate informed consents were reviewed and completed and the patient was transferred to the operative suite. Upon arrival, appropriate antibiotics and anesthesia were administered and the patient was placed in dorsal lithotomy position and prepped and draped in sterile fashion. To begin the case I passed a 27 [place] resectoscope with 30 degree lens and visual obturator. Inspection revealed a healthy-appearing urethra and prostate. It was difficult to assess beyond the prostate because of the substantial amount of blood within the bladder. After advancing the scope into the middle of the clot I exchanged the visual obturator for a Elsie instrument syringe and began to irrigate clot out of the bladder. This continued for several moments until it irrigated well in excess of 1 L from the bladder. I then reinspected and saw a bit more clot. I continued irrigating until I felt I had cleared all clot. I was able to then adequately evaluate and investigate the bladder. There were no large vessels bleeding although there was a small amount of venous oozing from the right lateral wall just posterior and lateral to the right UO. There is no clear bleeding from any of the orifice ease including his transplant orifice. Prostate was inspected and he had very minor venous ooze near the apex, I suspect this likely occurred from my scope passing back and forth. I utilized a button electrode to cauterize the area just behind the right UO as well as the venous ooze at the apex of the prostate. At that time the bladder appeared to be quite clear and healthy and I left the bladder full and withdrew the scope. I placed a 24 [place] hematuria catheter but capped the third portwe will reserve this for use in the future if he needs irrigation of his bladder from a bleeding standpoint or for treatment of infection. He was reversed of anesthesia and taken to the recovery room in stable condition. There were no complications. I attest to the content of the Intraoperative Record and any orders documented therein. Any exceptions are noted below. Supervising Physician Co-Signing Physician Notes plan for transfusion now (continue into the OR) plan for clot evacuation and fulguration now
--- NOTE | 2020-11-23 12:48 | Anesthesiology Progress Note ---
Date of Service November 23, 2020 Anesthesia Post Procedure Vital Signs Vital Signs: Temp Pulse Pulse Pulse Resp BP BP 11/23/20 12:35 60 19 105/50 L 11/23/20 12:25 60 18 113/54 L 11/23/20 12:17 99.7 F H 73 21 103/53 L 11/23/20 11:34 98.2 F 63 16 162/53 H 11/23/20 10:40 97.7 F 61 18 133/60 11/23/20 10:10 97.9 F 60 18 125/56 L 11/23/20 09:55 98.2 F 70 18 121/49 L 11/23/20 09:38 98.1 F 57 L 18 125/53 L 11/23/20 08:00 71 11/23/20 07:40 97.5 F L 59 L 16 103/56 L 11/23/20 03:20 67 18 90/50 L 11/23/20 03:00 60 18 88/50 L 11/23/20 02:11 75 22 140/92 11/23/20 02:00 84 20 11/23/20 01:13 60 17 11/23/20 01:08 81 22 11/23/20 00:29 97.7 F 60 22 130/85 11/22/20 22:13 63 22 161/57 H 11/22/20 20:36 97.7 F 81 24 134/60 Pulse Ox 11/23/20 12:35 100 11/23/20 12:25 100 11/23/20 12:17 100 11/23/20 11:34 95 11/23/20 10:40 11/23/20 10:10 11/23/20 09:55 11/23/20 09:38 11/23/20 08:00 11/23/20 07:40 93 11/23/20 03:20 94 11/23/20 03:00 11/23/20 02:11 95 11/23/20 02:00 11/23/20 01:13 11/23/20 01:08 95 11/23/20 00:29 95 11/22/20 22:13 95 11/22/20 20:36 100 Pain Intensity Penis: Pain Intensity: 5 Transfer of Care Handoff Completed per policy Notes Mental Status: alert / awake / arousable and participated in evaluation Patient Amnestic to Procedure: Yes Nausea / Vomiting: adequately controlled Pain: adequately controlled Airway Patency, RR, SpO2: stable & adequate BP & HR: stable & adequate Hydration State: stable & adequate Anesthetic Complications: no major complications apparent and Pt Satisfied with anesthetic care
--- NOTE | 2020-11-23 13:04 | Nephrology Consultation ---
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 Admitted with urinary retention and gross hematuria with history of BPH. Jimenez catheter was placed and needed repeated irrigation due to blood clot. hemoglobin was 6.9, received blood transfusion. -- Evaluated by Urology and plan for cystoscopy -- electrolyte has been acceptable, blood pressure relatively low and volume status acceptable, will hold dialysis today and plan for dialysis tomorrow -- continue on home dose of CellCept and Prograf -- dose medications for GFR less than 10, left arm nephrology precaution for future AV fistula. -- Will give Epogen with dialysis tomorrow will follow Thank you for allowing me to participate in your patient's care. It was a pleasure to see Francis History of Present Illness Reason for Consultation: ESRD on hemodialysis, admitted with hematuria and urinary retention. Attending Physician: Eduar Malone DO History of Present Illness Francis Arzate is a 80-year-old male with PMH of ESRD with history of failed renal transplant, BPH with LUTS, Gout, DM, HTN, hyperlipidemia, GERD, depression, edema admitted to with gross hematuria and urinary retention. Nephrology consult was requested to manage hemodialysis and immunosuppressive medication while inpatient. EMR records are reviewed in detail during patient's visit. Francis presented to ER as he noted urinary retention and gross blood and blood clot in urine. He was also recently diagnosed with UTI. On admission his hemoglobin was found to be 6.9 and received blood transfusion. Jimenez catheter placement was difficult due to blood clot eventually he had irrigation several times. Imaging showed there is blood product and blood clot in urinary bladder, there is no postrenal obstruction but there is mild fullness in allograft pelvis and has atrophic bilateral koi kidneys. Has ESRD after failed renal transplant, has been on dialysis for last almost 2 months via right IJ tunneled dialysis catheter, Dialysis on Sunday, , Sunday. Last dialysis was last Sunday, electrolyte has been acceptable today. Blood pressure relatively low but volume status acceptable. He received live donor renal transplant in 2014 from his . 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 He is still continued on his immunosuppressive regimen with tacrolimus and CellCept. He follows with Nephrology group in [place] where he gets the dialysis. Plan to have AV fistula in future. Currently he is bothered by significant pain with the Jimenez catheter. Allergies Allergy/AdvReac Type Severity Reaction Status Date / Time lisinopril Allergy Unknown ORAL EDEMA Verified 11/23/20 00:58 [id number] Reductase AdvReac Intermediate MUSCLE Verified 11/23/20 00:58 Inhibitor WEAKNESS NSAIDS (Non-Steroidal AdvReac Unknown KIDNEY Verified 11/23/20 00:58 Anti-Inflamma TRANSPLANT Home Medications Medication Instructions Recorded Confirmed Type allopurinol 300 mg tablet 150 mg PO DAILY tab 11/03/20 11/23/20 History amlodipine 5 mg tablet 5 mg PO DAILY 11/03/20 11/23/20 History aspirin 81 mg tablet,delayed 81 mg PO DAILY 11/03/20 11/23/20 History release (Adult Low Dose Aspirin) carvedilol 3.125 mg tablet 3.125 mg PO DAILY tab 11/03/20 11/23/20 History cholecalciferol (vitamin D3) 50 50 mcg PO DAILY 11/03/20 11/23/20 History mcg (2,000 unit) capsule ezetimibe 10 mg tablet (Zetia) 10 mg PO DAILY 11/03/20 11/23/20 History lamotrigine 25 mg tablet 50 mg PO BID tab 11/03/20 11/23/20 History mycophenolate mofetil 250 mg 750 mg PO BID cap 11/03/20 11/23/20 History capsule (CellCept) omeprazole 20 mg capsule,delayed 20 mg PO DAILY 11/03/20 11/23/20 History release primidone 50 mg tablet 100 mg PO BID tab 11/03/20 11/23/20 History sertraline 25 mg tablet (Zoloft) 25 mg PO DAILY 11/03/20 11/23/20 History sulfamethoxazole 400 1 tab PO 3XWK tab 11/03/20 11/23/20 History mg-trimethoprim 80 mg tablet (Bactrim) tacrolimus 1 mg capsule, 2 mg PO Q12H cap 11/03/20 11/23/20 History immediate-release (Prograf) tamsulosin 0.4 mg capsule 0.4 mg PO DAILY 11/03/20 11/23/20 History torsemide 20 mg tablet 40 mg PO DAILY tab 11/03/20 11/23/20 History finasteride 5 mg tablet 5 mg PO DAILY #90 tab 11/15/20 11/23/20 Rx fluconazole 200 mg tablet 100 mg PO DAILY #4 tab 11/22/20 11/23/20 Rx (Diflucan) insulin NPH isoph U-100 human 100 15 unit SUBCUT BID 11/23/20 11/23/20 History unit/mL (3 mL) subcutaneous pen (Novolin N Flexpen) insulin regular human 100 unit/mL 1 sliding scale dose SUBCUT 11/23/20 11/23/20 History (3 mL) subcutaneous pen (Novolin R USEASDIRECTD Flexpen) Patient History Medical History (Updated 11/23/20 @ 13:15 by Neeta Gayle MD) Anemia Arthritis Calcaneus fracture Diabetes ESRD on hemodialysis Gout Gross hematuria Heart trouble Hypertension Kidney failure Kidney stones Pacemaker Seizure Surgical History H/O left knee surgery H/O umbilical hernia repair History of carpal tunnel surgery History of heart artery stent History of left knee replacement Kidney transplant recipient Previous back surgery S/P trigger finger release Family History Mother Diabetes Hypertension Father Diabetes Hypertension Brother Diabetes Hypertension Cancer liver and lung CA Sister Diabetes Hypertension Cancer Breast and Uterine CA Social History Smoking Status: Former smoker Hx Alcohol Use: No Preferred Language: [place] Beliefs That Will Affect Care: None Feels Safe at Home: Yes Assistive Devices: CPAP, Denture - Upper, Oxygen - at Night and Walker Review of Systems Review of Systems: detailed review of system was negative except mentioned in HPI. Physical Exam Constitutional: WD/WN, vitals as above + acute distress ( With significant pain.) and + ill appearing Eyes: PERRL, conjunctivae normal, anicteric sclerae ENMT: external ear and nose normal, oropharynx normal Ears: no hearing impairment Neck: trachea midline Respiratory: normal respiratory effort, lungs clear to auscultation no cough Auscultation: no crackles, no rales and no wheezes Cardiovascular: RRR, no murmur, no edema Extremities: + vascular access device ( right IJ tunneled dialysis catheter.) Gastrointestinal (Abdomen): normal bowel sounds, soft, nontender, no hepatosplenomegaly Percussion/Palpation: abdomen nontender, no guarding and abdomen not rigid Musculoskeletal: Extremities: extremities normal to inspection Gait: normal gait Skin: no rashes, warm and dry Neurologic: moves all extremities and awake Psychiatric: A+Ox3, euthymic affect Results & Data ([facility]) Vital Signs (Past 12 Hours) Vital Signs Temp Pulse Pulse Pulse Resp BP BP 11/23/20 12:55 36.8 C 60 19 99/48 L 11/23/20 12:50 65 20 94/42 L 11/23/20 12:35 60 19 105/50 L 11/23/20 12:25 60 18 113/54 L 11/23/20 12:17 37.6 C H 73 21 103/53 L 11/23/20 11:34 36.8 C 63 16 162/53 H 11/23/20 10:40 36.5 C 61 18 133/60 11/23/20 10:10 36.6 C 60 18 125/56 L 11/23/20 09:55 36.8 C 70 18 121/49 L 11/23/20 09:38 36.7 C 57 L 18 125/53 L 11/23/20 08:00 71 11/23/20 07:40 36.4 C L 59 L 16 103/56 L 11/23/20 03:20 67 18 90/50 L 11/23/20 03:00 60 18 88/50 L 11/23/20 02:11 75 22 140/92 11/23/20 02:00 84 20 11/23/20 01:13 60 17 11/23/20 01:08 81 22 Pulse Ox 11/23/20 12:55 98 11/23/20 12:50 94 11/23/20 12:35 100 11/23/20 12:25 100 11/23/20 12:17 100 11/23/20 11:34 95 11/23/20 10:40 11/23/20 10:10 11/23/20 09:55 11/23/20 09:38 11/23/20 08:00 11/23/20 07:40 93 11/23/20 03:20 94 11/23/20 03:00 11/23/20 02:11 95 11/23/20 02:00 11/23/20 01:13 11/23/20 01:08 95 PG Care Time/CCT Total # of Minutes Spent Total Time Spent with Patient: Total time spent is greater than 50% in coordination of care (as documented) at patient's floor/unit and/or counseling patient: Coding Level of Care Code 62524 Initial Inpt Care Lvl 3 Diagnoses ESRD on hemodialysis N18.6; Z99.2 Kidney transplant recipient Z94.0 Hypertension I10 Acute urinary retention R33.8 Gross hematuria R31.0 Anemia D64.9
--- NOTE | 2020-11-23 16:19 | Medical Student Progress Note ---
Date of Service November 23, 2020 Assessment & Plan (1) Gross hematuria: Plan: 80 yo M with PMH of BPH with LUTS, kidney transplant recipient, kidney failure, ESRD on HD on Sunday//Sunday, gout, diabetes mellitus, pacemaker presence, hypertension, hyperlipidemia, GERD, depression, edema, and recent diagnosis with Sheri glabrata UTI, admitted for acute urinary retention. Gross hematuria -Hx of BPH w/LUTS and s/p recent outpatient cystoscopy on 11/15 -hemorrhagic cystitis likely attributed to Sheri glabrata infection, urine culture pending -CT reviewed - Irregular hyperdensity in the bladder, consistent with hemorrhag ic product/clot burden. -S/p cystoscopy and 1 L clot evacuation in OR 11/23 -Jimenez catheter intact -Urology continuing to follow - Has not started fluconazole yet. - plan to receive 4 doses of fluconazole 100 mg following each of the next 4 dialysis treatments Anemia - Hemoglobin 6.9, received 1prbc, - repeat cbc in am Kidney failure on Dialysis -Kidney failure/kidney transplant recipient/ESRD on HD - Typically dialysis on , Sun -Seen by nephrology today -dialysis held today and plan for dialysis tomorrow -continue on home dose of CellCept and Prograf, dosing medications for GFR less than 10, left arm nephrology precaution for future AV fistula. -Epogen with dialysis tomorrow Hypertension - continue amlodipine, carvedilol -Hold torsemide Gout -Continue allopurinol, but adjust dosing for renal clearance Diabetes -Continue NPH 15 units subq twice daily -Hold regular human sliding scale -Place on Accu-Cheks before meals and at bedtime with NovoLog coverage per scale -hemoglobin A1c 5.9 Seizure -Continue primidone and lamotrigine VTE Prophylaxis: SCDs, holding chemoprophylaxis Code Status: Full code FEN/GI: Heart healthy, NSS 60ml/hr x500ml Dispo: MedSurg telemetry Admission and Anticipated Discharge Date Admission Date: November 23, 2020 Supervising Attestation I personally examined the patient and verified all melendez points of history and exam, discussed case, and agree with decision making with Darrin MEDINA. feeling better post cysto. still some burning but far less pain vitals noted nad heent nc at mmm breathing unlabored no accessory muscles good effort skin no rashes no pallor or icterus. abd soft nd mild suprapubic tenderness no guarding or rebound Anemia due to acute blood loss and ESRDacute blood loss due to hematuriarequired transfusion due to hemoglobin continuing to drop and bleeding ongoing. Fortunately hemodynamically stable. Continue to follow. Gross hematuriaappears to be due to hemorrhagic cystitis post cystoscopy. Antibiotics, supportive care, time. otherwise as above. SCDs being utilized for DVT prophylaxis given that pharmacologic is contraindicated due to his acute blood loss and ongoing hematuria. Subjective 80 yo M with PMH of BPH with LUTS, kidney transplant recipient, kidney failure, ESRD on HD on Sunday//Sunday, gout, diabetes mellitus, pacemaker presence, hypertension, hyperlipidemia, GERD, depression, edema, and recent diagnosis with Sheri glabrata UTI, presenting to the ED with acute urinary retention, and after bladder scan revealed 800 mils of urine, a Jimenez catheter was placed, with frequent irrigation due to significant blood and blood clots present. Saw the patient prior to urology procedure, the patient was uncomfortable, 10/10 pain in penis and lower abdomen, not relieved by IV pain medication. Jimenez catheter draining blood. He denies fevers, chills, nausea, and vomiting. He has not had anything to eat or drink overnight. Checked in with patient after his procedure, he resting comfortably with improvement of pain. No drainage in Jimenez catheter. Review of Systems Constitutional: as per Subjective / HPI No light-headedness or fatigue Respiratory: No cough, SOB, or wheezing Cardiovascular: Additional Comments: No chest pain or palpitations Gastrointestinal: + abdominal pain No changes in bowel habits Genitourinary: + difficulty urinating and + hematuria Physical Exam Constitutional: WD/WN, vitals as above + in distress AOx3 Respiratory: normal respiratory effort, lungs clear to auscultation Cardiovascular: RRR, no murmur, no edema Heart Sounds: normal S1 and normal S2 Gastrointestinal (Abdomen): Bowel sounds present, abdomen is soft, non- distended, and normal to inspection. Lower abdomen/Suprapubic tenderness to palpation. Guarding present. No rebound tenderness. Genitourinary: Jimenez catheter intact Results & Data ([facility]) Vital Signs (Past 12 Hours) Vital Signs Temp Pulse Pulse Pulse Pulse Resp BP 11/23/20 15:45 36.5 C 60 16 11/23/20 13:50 36.6 C 60 18 11/23/20 13:15 60 18 11/23/20 13:05 60 17 11/23/20 12:55 36.8 C 60 19 11/23/20 12:50 65 20 11/23/20 12:35 60 19 11/23/20 12:25 60 18 11/23/20 12:17 37.6 C H 73 21 11/23/20 11:34 36.8 C 63 16 11/23/20 10:40 36.5 C 61 18 133/60 11/23/20 10:10 36.6 C 60 18 125/56 L 11/23/20 09:55 36.8 C 70 18 121/49 L 11/23/20 09:38 36.7 C 57 L 18 125/53 L 11/23/20 08:00 71 11/23/20 07:40 36.4 C L 59 L 16 BP BP Pulse Ox 11/23/20 15:45 118/57 L 98 11/23/20 13:50 100/52 L 96 11/23/20 13:15 90/44 L 99 11/23/20 13:05 94/43 L 99 11/23/20 12:55 99/48 L 98 11/23/20 12:50 94/42 L 94 11/23/20 12:35 105/50 L 100 11/23/20 12:25 113/54 L 100 11/23/20 12:17 103/53 L 100 11/23/20 11:34 162/53 H 95 11/23/20 10:40 11/23/20 10:10 11/23/20 09:55 11/23/20 09:38 11/23/20 08:00 11/23/20 07:40 103/56 L 93 Laboratory Results Abnormal lab results 11/22/20 11/23/20 11/23/20 Range/Units 22:27 00:58 00:58 RBC 2.49 L (4.7-6.1) M/uL Hgb 7.5 L (14.0-18.0) g/dL Hct 23.5 L (42-52) % MCHC 31.9 L (32-36) g/dL RDW Std Deviation 53.7 H (36.4-46.3) fL RDW Coeff of Bandar 15.7 H (11.5-14.5) % Neut # (Auto) 7.89 H (1.4-6.5) K/uL Lymph # (Auto) 0.91 L (1.2-3.4) K/uL Immature Gran # (Auto) 0.06 H (0.00-0.02) K/uL Carbon Dioxide 20 L (21-32) mmol/L BUN 44 H (7-18) mg/dl Creatinine 6.26 H* (0.6-1.4) mg/dl BUN/Creatinine Ratio 7.0 L (10-20) Glucose 198 H (70-99) mg/dl POC Glucose (70-99) mg/dl Hemoglobin A1c (4.5-5.6) % AST 4 L (15-37) U/L ALT 10 L (12-78) U/L Total Protein 6.3 L (6.4-8.2) gm/dl Albumin 3.2 L (3.4-5.0) gm/dl Urine Appearance Cloudy A (Clear) Urine Protein 3+ H (Negative) Urine Glucose (UA) Trace H (Negative) Urine Blood 3+ H (Negative) Ur Leukocyte Esterase Trace H (Negative) Urine RBC >30 H (0-4) /hpf Urine WBC >30 H (0-5) /hpf Ur Epithelial Cells 5-10 H (0-5) /lpf Urine Bacteria 1+ H (Negative) Crossmatch 11/23/20 11/23/20 11/23/20 Range/Units 07:32 07:45 07:45 RBC (4.7-6.1) M/uL Hgb (14.0-18.0) g/dL Hct (42-52) % MCHC (32-36) g/dL RDW Std Deviation (36.4-46.3) fL RDW Coeff of Bandar (11.5-14.5) % Neut # (Auto) (1.4-6.5) K/uL Lymph # (Auto) (1.2-3.4) K/uL Immature Gran # (Auto) (0.00-0.02) K/uL Carbon Dioxide (21-32) mmol/L BUN (7-18) mg/dl Creatinine (0.6-1.4) mg/dl BUN/Creatinine Ratio (10-20) Glucose (70-99) mg/dl POC Glucose 233 H (70-99) mg/dl Hemoglobin A1c 5.9 H (4.5-5.6) % AST (15-37) U/L ALT (12-78) U/L Total Protein (6.4-8.2) gm/dl Albumin (3.4-5.0) gm/dl Urine Appearance (Clear) Urine Protein (Negative) Urine Glucose (UA) (Negative) Urine Blood (Negative) Ur Leukocyte Esterase (Negative) Urine RBC (0-4) /hpf Urine WBC (0-5) /hpf Ur Epithelial Cells (0-5) /lpf Urine Bacteria (Negative) Crossmatch See Detail 11/23/20 11/23/20 11/23/20 Range/Units 07:45 12:19 16:34 RBC (4.7-6.1) M/uL Hgb 6.9 L* (14.0-18.0) g/dL Hct 21.5 L (42-52) % MCHC (32-36) g/dL RDW Std Deviation (36.4-46.3) fL RDW Coeff of Bandar (11.5-14.5) % Neut # (Auto) (1.4-6.5) K/uL Lymph # (Auto) (1.2-3.4) K/uL Immature Gran # (Auto) (0.00-0.02) K/uL Carbon Dioxide (21-32) mmol/L BUN (7-18) mg/dl Creatinine (0.6-1.4) mg/dl BUN/Creatinine Ratio (10-20) Glucose (70-99) mg/dl POC Glucose 207 H 252 H (70-99) mg/dl Hemoglobin A1c (4.5-5.6) % AST (15-37) U/L ALT (12-78) U/L Total Protein (6.4-8.2) gm/dl Albumin (3.4-5.0) gm/dl Urine Appearance (Clear) Urine Protein (Negative) Urine Glucose (UA) (Negative) Urine Blood (Negative) Ur Leukocyte Esterase (Negative) Urine RBC (0-4) /hpf Urine WBC (0-5) /hpf Ur Epithelial Cells (0-5) /lpf Urine Bacteria (Negative) Crossmatch
[2020-11-23] MEDS: FLUCONAZOLE 100 MG TAB PO SCH ×2 (16:20→16:46)
[2020-11-23] MEDS: allopurinoL 300 MG TAB PO SCH ×2 (16:20→16:45)
[2020-11-23] MEDS ORDERED: Nursing to Pharmacy Communication SCH (17:00)
--- NOTE | 2020-11-23 19:11 | Billing Data ---
Date of Service November 23, 2020 Coding Level of Care Code 88253 Subseq Hosp Care Lvl 3
[2020-11-23] MEDS: TAMSULOSIN HCL 0.4 MG CAP PO SCH (21:32)
[2020-11-24] MEDS: MoRPHine SULFATE 2 MG/ML CARP IV PRN ×3 (05:51→14:30)
[2020-11-24] MEDS: cefTRIAXone SODIUM 2,000 MG in DEXTROSE 5% 50 ML IV SCH (06:22)
[2020-11-24 08:36] LABS: Hemoglobin 6.4 g/dL (14.0-18.0); Mean Corpuscular Hemoglobin 30.3 pg (25-34); Mean Corpuscular Volume 94.8 fL (80-100); Mean Platelet Volume 8.7 fL (7.4-10.4); Platelet Count 120 K/uL (130-400); RDW Standard Deviation 54.6 fL (36.4-46.3); Red Blood Count 2.11 M/uL (4.7-6.1); White Blood Count 7.65 K/uL (4.8-10.8)
[2020-11-24] MEDS ORDERED: SODIUM CHLORIDE 0.9% 250 ML IV PRN ×2 (08:41→08:42)
[2020-11-24 08:46] LABS: Alanine Aminotransferase < 6 U/L (12-78); Albumin Level 2.7 gm/dl (3.4-5.0); Alkaline Phosphatase 93 U/L (45-117); Aspartate Aminotransferase 6 U/L (15-37); BUN Creatinine Ratio 7.4 (10-20); Bilirubin,Total 0.3 mg/dl (0.2-1); Blood Urea Nitrogen 55 mg/dl (7-18); Calcium 8.3 mg/dl (8.5-10.1); Carbon Dioxide 19 mmol/L (21-32); Chloride 106 mmol/L (98-107); Creatinine Clr Calc Pharmacy 9.6 ml/min; Est GFR (African American) 7.4 ml/min; Est GFR (Non-African American) 6.4 ml/min; Globulin 2.8 gm/dl (2.5-4.0); Glucose 129 mg/dl (70-99); Potassium 5.2 mmol/L (3.5-5.1); Sodium 137 mmol/L (136-145); Total Protein 5.5 gm/dl (6.4-8.2)
[2020-11-24 08:47] LABS: Basophils # (auto) 0.02 K/uL (0-0.2); Basophils % (auto) 0.3 %; Eosinophils # (auto) 0.22 K/uL (0-0.5); Eosinophils % (auto) 2.9 %; Immature Granulocytes # (auto) 0.04 K/uL (0.00-0.02); Immature Granulocytes % (auto) 0.5 %; Lymphocytes # (auto) 0.94 K/uL (1.2-3.4); Lymphocytes % (auto) 12.3 %; Monocytes # (auto) 0.69 K/uL (0.11-0.59); Neutrophils # (auto) 5.74 K/uL (1.4-6.5); Tear Drop Cells 1+
[2020-11-24] MEDS ORDERED: SULFA/TRIMETH 400/80MG TAB PO SCH (09:00)
[2020-11-24] MEDS ORDERED: EPOETIN ALFA 10,000 UNITS/ML VIAL IV ONE (09:00)
[2020-11-24] MEDS: INSULIN ASPART 100 UNITS/ML 3 ML PEN SC SCH ×5 (09:01→20:45)
--- NOTE | 2020-11-24 09:01 | Urology Progress Note ---
Date of Service November 24, 2020 Assessment & Plan (1) Gross hematuria: (2) Acute urinary retention: Plan: 80yo M with multiple medical comorbidities including renal transplant, admitted with acute urinary retention - POD #1 s/p Cystoscopy, Clot Evacuation with Dr. Pereira. - Afebrile - Labs reviewed, Wbc normal, hemoglobin 6.4 (6.9 yesterday), creatinine 7.39 - Had dialysis today and 2units PRBC - Urine culture from 11/15 with Sheri glabrata; UCx on admission still pending - Perez catheter draining clear, yellow urine at present - Maintain perez catheter - OK to gently irrigate as needed for clots, retention, suprapubic pain - Continue supportive care and antibiotic therapy, follow culture - Continue to monitor H&H, transfuse as felt necessary per primary team - Will continue to follow Admission and Anticipated Discharge Date Admission Date: November 23, 2020 Supervising Physician Co-Signing Physician Notes Discussed patient and plan with MARCELLE. Agree with above. Rounded on patient with MARCELLE. He was somewhat frustrated with discomfort from perez and 4 hours of dialysis compared to his normal 3 hour routine. Discussed discomfort following procedure, which is expected. Urine is clear yellow. Rounded on patient later in today and was feeling better. Per Dr. Pereira, will remove perez tonight and try void trial in hopes of improving his discomfort. Subjective POD #1 s/p Cystoscopy, Clot Evacuation Pt examined at bedside this afternoon Awake, resting in bed on arrival. Reports continued pain/dysuria with perez catheter. Perez catheter intact, draining clear, yellow urine. Nursing manually irrigated catheter overnight - Pt reported an improvement in pain after irrigation No fevers. Tolerating diet. Had dialysis this morning. Received 2units PRBC today. Chart review: Afebrile, VSS, on 2L/min O2 NC Wbc 7.65 Hgb 6.4 Cr 7.39 Perez catheter output overnight -75ml UCx 11/15- Sheri glabrata UCx 11/22- pending Continues on IV Ceftriaxone Review of Systems Constitutional: as per Subjective / HPI Gastrointestinal: as per Subjective / HPI Genitourinary: + as per Subjective / HPI Physical Exam Constitutional: no acute distress Respiratory: normal respiratory effort and able to speak in complete sentences; no labored breathing and no audible wheezes Gastrointestinal (Abdomen): Inspection/Auscultation: abdomen normal to ins pection; abdomen not distended Musculoskeletal: Head/Neck/Chest: normocephalic Skin: No visible rashes or lesions to exposed skin areas Neurologic: moves all extremities and awake Psychiatric: Orientation: alert, oriented x 3 and cooperative Genitourinary: Perez catheter intact Results & Data ([facility]) Vital Signs (Past 12 Hours) Vital Signs Temp Pulse Pulse Resp BP Pulse Ox 11/24/20 08:14 61 11/24/20 07:00 36.9 C 75 20 112/58 L 96 11/24/20 02:38 36.9 C 60 20 153/66 H 94 11/23/20 22:58 36.8 C 60 18 151/65 H 96 11/23/20 22:19 64 PG Care Time/CCT Total # of Minutes Spent Total Time Spent with Patient: Total time spent is greater than 50% in coordination of care (as documented) at patient's floor/unit and/or counseling patient: Coding Level of Care Code 42045 Subseq Hosp Care Lvl 2 Diagnoses Gross hematuria R31.0 Acute urinary retention R33.8
[2020-11-24] MEDS: INSULIN HUMAN NPH SC SCH ×2 (09:11→17:30)
--- NOTE | 2020-11-24 09:42 | Medical Student Progress Note ---
Date of Service November 24, 2020 Assessment & Plan (1) Gross hematuria: Plan: 80 yo M with PMH of BPH with LUTS, kidney transplant recipient, kidney failure, ESRD on HD on Sunday//Sunday, gout, diabetes mellitus, pacemaker presence, hypertension, hyperlipidemia, GERD, depression, edema, and recent diagnosis with Sheri glabrata urine culture 11/15, admitted for acute urinary retention. Acute urinary retention with gross hematuria -Hx of BPH w/LUTS and s/p recent outpatient cystoscopy on 11/15 -CT reviewed - Irregular hyperdensity in the bladder, consistent with hemorrhagic product/clot burden. -POD#1 s/p cystoscopy, clot evacuation with Dr. Pereira -UCx 11/15 Sheri glabrata, UCx 11/22 still pending - continue ceftriaxone 2,000 mg daily -Jimenez catheter intact and draining clear urine -Hold fluconazole for now until UCx returns -Urology continuing to follow Anemia - Hemoglobin 6.4 today, received 2 PRBCs this AM - Had received 1 unit PRBC yesterday for hemoglobin 6.9 - repeat CBC in am Kidney failure on Dialysis -Kidney failure/kidney transplant recipient/ESRD on HD - Typically dialysis on , , Sun - Hemodialysis today with Epogen 63493 units x 1 dose and transfusion during -continue on home dose of CellCept and Prograf, dosing medications for GFR less than 10, left arm nephrology precaution for future AV fistula. -Nephrology continuing to follow Hypertension - continue amlodipine, carvedilol -Hold torsemide Gout -Continue allopurinol, but adjust dosing for renal clearance Diabetes -Continue NPH 15 units subq twice daily -Hold regular human sliding scale -Place on Accu-Cheks before meals and at bedtime with NovoLog coverage per scale -hemoglobin A1c 5.9 Seizure -Continue primidone and lamotrigine VTE Prophylaxis: SCDs, holding chemoprophylaxis Code Status: Full code FEN/GI: Heart healthy Dispo: MedSurg telemetry Admission and Anticipated Discharge Date Admission Date: November 23, 2020 Supervising Attestation I personally examined the patient and verified all melendez points of history and exam, discussed case, and agree with decision making with Darrin So MS2. Still having some penis pain, although it is less than 2 days ago. He is having a hard time deciding if it is a little better or the same as yesterday, but definitively is better than 2 days ago. Hematuria has cleared. vitals noted nad heent nc at mmm breathing unlabored no accessory muscles good effort skin no rashes no pallor or icterus. abd soft nd Jimenez in place, no penile breakdown/erythema/discharge/inflammatory changes, foreskin retracts normally, may be questionable left groin adenopathy nothing on the right, lower abdominal wall soft nontender no guarding rebound or rigidity Anemia due to acute blood loss and ESRDacute blood loss due to hematuriadropped again today, required transfusion yet again today. Given that hematuria has now cleared, anticipate his hemoglobin rising/stabilizing with today's transfusion. Has now received 3 units. Gross hematuriaappears to be due to hemorrhagic cystitis post cystoscopy. Antibiotics, supportive care, time. Awaiting culture, continue antibiotics, is on fluconazolenot clear if Sheri is actually an offender, but given that he is quite immune compromised, reasonable to continue. Penile paindoes not appear to really be anything new or worse with infection, suspect that it may even largely be due to irritation from Jimenez cathdiscussed with urology, given that urine has cleared we both agree a trial of discontinuation can be done otherwise as above. SCDs being utilized for DVT prophylaxis given that pharmacologic is contraindicated due to his acute blood loss and ongoing hematuria. Subjective POD #1 s/p Cystoscopy, Clot Evacuation. Resting in bed. Abdominal pain improved from yesterday. Burning in penis still remains, associated with movement. Eating and drinking well. Jimenez cath draining clear urine. Hemodynamically stable. Pt is relatively weak. No dizziness or lightheadedness. No SOB, chest pain, palpitations. No headaches. No nausea or vomiting. Review of Systems Review of Systems: All systems reviewed & are unremarkable except as noted in Subjective Physical Exam Constitutional: Well developed and well nourished. Uncomfortable. No acute distress. ENMT: Head is atraumatic and moist mucus membranes. Respiratory: Normal respiratory effort with unlabored breathing. Lungs clear to auscultation bilaterally. Cardiovascular: RRR, normal S1-S2. No M/R/G. No edema present. Gastrointestinal (Abdomen): Inspection/Auscultation: abdomen normal to inspection and normal bowel sounds Abdomen is soft and non-distended. Mild suprapubic tenderness. No guarding or rebound tenderness. Skin: No rashes present. Neurologic: AOx3, no focal deficits. Genitourinary: Jimenez catheter intact and draining clear urine Results & Data ([facility]) Vital Signs (Past 12 Hours) Vital Signs Temp Pulse Pulse Pulse Resp BP BP 11/24/20 09:20 63 118/47 L 11/24/20 08:56 63 119/41 L 11/24/20 08:55 37.1 C 63 11/24/20 08:14 61 11/24/20 07:00 36.9 C 75 20 112/58 L 11/24/20 02:38 36.9 C 60 20 153/66 H 11/23/20 22:58 36.8 C 60 18 151/65 H 11/23/20 22:19 64 Pulse Ox 11/24/20 09:20 11/24/20 08:56 11/24/20 08:55 11/24/20 08:14 11/24/20 07:00 96 11/24/20 02:38 94 11/23/20 22:58 96 11/23/20 22:19 Laboratory Results Abnormal lab results 11/23/20 11/23/20 11/23/20 Range/Units 07:45 12:19 16:34 RBC (4.7-6.1) M/uL Hgb (14.0-18.0) g/dL Hct (42-52) % RDW Std Deviation (36.4-46.3) fL RDW Coeff of Bandar (11.5-14.5) % Plt Count (130-400) K/uL Lymph # (Auto) (1.2-3.4) K/uL [place] # (Auto) (0.11-0.59) K/uL Immature Gran # (Auto) (0.00-0.02) K/uL Potassium (3.5-5.1) mmol/L Carbon Dioxide (21-32) mmol/L Anion Gap (3-11) BUN (7-18) mg/dl Creatinine (0.6-1.4) mg/dl BUN/Creatinine Ratio (10-20) Glucose (70-99) mg/dl POC Glucose 207 H 252 H (70-99) mg/dl Calcium (8.5-10.1) mg/dl AST (15-37) U/L ALT (12-78) U/L Total Protein (6.4-8.2) gm/dl Albumin (3.4-5.0) gm/dl Crossmatch See Detail 11/23/20 11/24/20 11/24/20 Range/Units 20:08 07:21 07:56 RBC 2.11 L (4.7-6.1) M/uL Hgb 6.4 L* (14.0-18.0) g/dL Hct 20.0 L* (42-52) % RDW Std Deviation 54.6 H (36.4-46.3) fL RDW Coeff of Bandar 16.0 H (11.5-14.5) % Plt Count 120 L (130-400) K/uL Lymph # (Auto) 0.94 L (1.2-3.4) K/uL [place] # (Auto) 0.69 H (0.11-0.59) K/uL Immature Gran # (Auto) 0.04 H (0.00-0.02) K/uL Potassium (3.5-5.1) mmol/L Carbon Dioxide (21-32) mmol/L Anion Gap (3-11) BUN (7-18) mg/dl Creatinine (0.6-1.4) mg/dl BUN/Creatinine Ratio (10-20) Glucose (70-99) mg/dl POC Glucose 220 H 139 H (70-99) mg/dl Calcium (8.5-10.1) mg/dl AST (15-37) U/L ALT (12-78) U/L Total Protein (6.4-8.2) gm/dl Albumin (3.4-5.0) gm/dl Crossmatch 11/24/20 Range/Units 07:56 RBC (4.7-6.1) M/uL Hgb (14.0-18.0) g/dL Hct (42-52) % RDW Std Deviation (36.4-46.3) fL RDW Coeff of Bandar (11.5-14.5) % Plt Count (130-400) K/uL Lymph # (Auto) (1.2-3.4) K/uL [place] # (Auto) (0.11-0.59) K/uL Immature Gran # (Auto) (0.00-0.02) K/uL Potassium 5.2 H (3.5-5.1) mmol/L Carbon Dioxide 19 L (21-32) mmol/L Anion Gap 12.0 H (3-11) BUN 55 H (7-18) mg/dl Creatinine 7.39 H* D (0.6-1.4) mg/dl BUN/Creatinine Ratio 7.4 L (10-20) Glucose 129 H (70-99) mg/dl POC Glucose (70-99) mg/dl Calcium 8.3 L (8.5-10.1) mg/dl AST 6 L (15-37) U/L ALT < 6 L (12-78) U/L Total Protein 5.5 L (6.4-8.2) gm/dl Albumin 2.7 L (3.4-5.0) gm/dl Crossmatch
[2020-11-24 10:05] LABS: Hepatitis B Surface Ab Quant 838.55 mIU/mL (>or=10mIU/mL Immune); Hepatitis B Surface Antibody Immune
[2020-11-24 10:16] LABS: Hepatitis B Surf Ag Rflx Conf Neg (Neg)
--- NOTE | 2020-11-24 10:34 | Nephrology Progress Note ---
Date of Service November 24, 2020 Assessment & Plan (1) ESRD on hemodialysis: (2) Kidney transplant recipient: (3) Hypertension: (4) Acute urinary retention: (5) Gross hematuria: (6) Anemia: Plan: ESRD on hemodialysis after failed renal transplant, dialysis on Sunday, , Sunday at [facility]. Admitted with urinary retention and gross hematuria with history of BPH. Jimenez catheter was placed and needed repeated irrigation due to blood clot. hemoglobin was 6.9, received blood transfusion. Had cystoscopy yesterday. Hemoglobin again dropped to 6.4 this morning, other electrolyte acceptable. -- Tolerating hemodialysis, blood pressure stable. -- Will give 2 units of PRBC during dialysis, Epogen 43159 units x 1 dose -- continue on home dose of CellCept and Prograf -- dose medications for GFR less than 10, left arm nephrology precaution for future AV fistula. will follow Admission and Anticipated Discharge Date Admission Date: November 23, 2020 Subjective Francis was seen during dialysis this morning. Tolerating dialysis, blood pressure relatively stable, tolerating UF. Hemoglobin dropped to 6.4, other electrolyte acceptable. Had cystoscopy yesterday. Reports continued pain and burning sensation. Review of Systems Review of Systems: detailed review of system was negative except mentioned in HPI. Physical Exam Constitutional: well developed and well nourished; no acute distress Respiratory: normal respiratory effort, lungs clear to auscultation Cardiovascular: RRR, no murmur, no edema Neurologic: moves all extremities and awake; not confused Psychiatric: A+Ox3, euthymic affect Results & Data ([facility]) Vital Signs (Past 12 Hours) Vital Signs Temp Pulse Pulse Pulse Resp BP BP 11/24/20 10:21 64 98/39 L 11/24/20 10:00 60 98/44 L 11/24/20 09:41 37.1 C 60 18 115/47 L 11/24/20 09:40 60 115/47 L 11/24/20 09:20 63 118/47 L 11/24/20 08:56 63 119/41 L 11/24/20 08:55 37.1 C 63 11/24/20 08:14 61 11/24/20 07:00 36.9 C 75 20 112/58 L 11/24/20 02:38 36.9 C 60 20 153/66 H 11/23/20 22:58 36.8 C 60 18 151/65 H Pulse Ox 11/24/20 10:21 11/24/20 10:00 11/24/20 09:41 11/24/20 09:40 11/24/20 09:20 11/24/20 08:56 11/24/20 08:55 11/24/20 08:14 11/24/20 07:00 96 11/24/20 02:38 94 11/23/20 22:58 96 PG Care Time/CCT Total # of Minutes Spent Total Time Spent with Patient: Total time spent is greater than 50% in coordination of care (as documented) at patient's floor/unit and/or counseling patient: Coding Level of Care Code 18095 Subseq Hosp Care Lvl 3 Diagnoses ESRD on hemodialysis N18.6; Z99.2 Kidney transplant recipient Z94.0 Hypertension I10 Acute urinary retention R33.8 Gross hematuria R31.0 Anemia D64.9
[2020-11-24] MEDS: MYCOPHENOLATE MOFETIL 250 MG CAP PO SCH ×2 (11:40→20:51)
[2020-11-24] MEDS: TACROLIMUS 1 MG CAP PO SCH ×2 (11:40→20:50)
[2020-11-24] MEDS: PANTOprazole 40 MG TAB PO SCH (13:58)
[2020-11-24] MEDS: CHOLECALCIFEROL 1,000 UNITS 25 MCG TAB PO SCH (13:58)
[2020-11-24] MEDS: EZETIMIBE 10 MG TABLET PO SCH (13:58)
[2020-11-24] MEDS: SERTRALINE HCL 50 MG TABLET PO SCH (13:58)
[2020-11-24] MEDS: FINASTERIDE 5 MG TAB PO SCH (13:59)
[2020-11-24] MEDS: allopurinoL 300 MG TAB PO SCH (14:01)
[2020-11-24] MEDS: lamoTRIgine 25 MG TAB PO SCH ×2 (14:03→20:50)
[2020-11-24] MEDS: PRIMIDONE 50 MG TAB PO SCH ×2 (14:03→20:50)
[2020-11-24] MEDS: carvediloL 3.125 MG TAB PO SCH (14:20)
[2020-11-24] MEDS: amLODIPine BESYLATE 5 MG TAB PO SCH (14:21)
[2020-11-24] MEDS ORDERED: FLUCONAZOLE 100 MG TAB PO SCH ×2 (16:00)
[2020-11-24] MEDS ORDERED: allopurinoL 300 MG TAB PO SCH (16:00)
--- NOTE | 2020-11-24 18:00 | Billing Data ---
Date of Service November 24, 2020 Coding Level of Care Code 32815 Subseq Hosp Care Lvl 3
[2020-11-24] MEDS: TAMSULOSIN HCL 0.4 MG CAP PO SCH (20:50)
[2020-11-25] MEDS: cefTRIAXone SODIUM 2,000 MG in DEXTROSE 5% 50 ML IV SCH (05:35)
[2020-11-25] MEDS: carvediloL 3.125 MG TAB PO SCH (08:22)
[2020-11-25] MEDS: EZETIMIBE 10 MG TABLET PO SCH (08:23)
[2020-11-25] MEDS: amLODIPine BESYLATE 5 MG TAB PO SCH (08:23)
[2020-11-25] MEDS: CHOLECALCIFEROL 1,000 UNITS 25 MCG TAB PO SCH (08:23)
[2020-11-25] MEDS: FINASTERIDE 5 MG TAB PO SCH (08:24)
[2020-11-25] MEDS: PANTOprazole 40 MG TAB PO SCH (08:24)
[2020-11-25] MEDS: lamoTRIgine 25 MG TAB PO SCH (08:24)
[2020-11-25] MEDS: MYCOPHENOLATE MOFETIL 250 MG CAP PO SCH (08:24)
[2020-11-25] MEDS: SERTRALINE HCL 50 MG TABLET PO SCH (08:25)
[2020-11-25] MEDS: TACROLIMUS 1 MG CAP PO SCH (08:26)
[2020-11-25] MEDS: PRIMIDONE 50 MG TAB PO SCH (08:26)
[2020-11-25] MEDS: INSULIN ASPART 100 UNITS/ML 3 ML PEN SC SCH ×2 (08:29→12:44)
[2020-11-25] MEDS: INSULIN HUMAN NPH SC SCH (08:30)
[2020-11-25 09:02] LABS: Basophils # (auto) 0.01 K/uL (0-0.2); Basophils % (auto) 0.1 %; Eosinophils # (auto) 0.19 K/uL (0-0.5); Eosinophils % (auto) 2.3 %; Hematocrit (blood only) 26.9 % (42-52); Hemoglobin 8.8 g/dL (14.0-18.0); Immature Granulocytes # (auto) 0.07 K/uL (0.00-0.02); Immature Granulocytes % (auto) 0.9 %; Lymphocytes % (auto) 13.6 %; Mean Corpuscular Hemoglobin 29.9 pg (25-34); Mean Corpuscular Hgb Conc 32.7 g/dL (32-36); Mean Corpuscular Volume 91.5 fL (80-100); Mean Platelet Volume 9.4 fL (7.4-10.4); Monocytes # (auto) 1.05 K/uL (0.11-0.59); Neutrophils # (auto) 5.67 K/uL (1.4-6.5); Neutrophils % (auto) 70.1 %; Platelet Count 129 K/uL (130-400); RDW Coefficient of Variation 15.9 % (11.5-14.5); RDW Standard Deviation 51.8 fL (36.4-46.3); Red Blood Count 2.94 M/uL (4.7-6.1); White Blood Count 8.09 K/uL (4.8-10.8)
--- NOTE | 2020-11-25 09:10 | Urology Progress Note ---
Date of Service November 25, 2020 Assessment & Plan (1) Gross hematuria: (2) Acute urinary retention: Plan: 80yo M with multiple medical comorbidities including renal transplant, admitted with acute urinary retention - POD #2 s/p Cystoscopy, Clot Evacuation with Dr. Pereira. - Pt feeling much better today. - Jimenez catheter removed yesterday - Afebrile. - Labs reviewed, Wbc normal, hemoglobin 8.8 (6.4 yesterday), creatinine 4.77 - Had dialysis and 2units PRBC yesterday - UCx 11/15 with Sheri glabrata; UCx 11/22 final with no growth - Continue to monitor ability to spontaneously void, recommend bladder scan qshift and PRN - Continue supportive care and management per primary team - Will arrange outpatient follow-up with urology for continued care following discharge - Thank you for allowing us to participate in the acute care of Mr. Arzate. Please reconsult us with additional questions, concerns or changes in patient status. Admission and Anticipated Discharge Date Admission Date: November 23, 2020 Supervising Physician Co-Signing Physician Notes Discussed patient and plan with MARCELLE. Agree with above. Saw patient personally Subjective POD #2 s/p Cystoscopy, Clot Evacuation Pt examined at bedside this AM. Awake, sitting in bedside chair on arrival. Jimenez catheter was removed yesterday d/t discomfort from catheter. Pt reports he is feeling much better today. Denies pain/discomfort at present. Per nursing note, pt has not yet voided. He was bladder scanned for 0ml. No fevers. Tolerating diet. Review of Systems Constitutional: as per Subjective / HPI Gastrointestinal: as per Subjective / HPI Genitourinary: + as per Subjective / HPI Physical Exam 2 Constitutional: no acute distress Respiratory: normal respiratory effort and able to speak in complete sentences; no labored breathing and no audible wheezes Gastrointestinal (Abdomen): Inspection/Auscultation: abdomen normal to inspection; abdomen not distended Musculoskeletal: Head/Neck/Chest: normocephalic Skin: No visible rashes or lesions to exposed skin areas Neurologic: moves all extremities and awake Psychiatric: Orientation: alert, oriented x 3 and cooperative Results & Data ([facility]) Vital Signs (Past 12 Hours) Vital Signs Temp Pulse Pulse Resp BP Pulse Ox 11/25/20 07:38 36.8 C 65 14 103/52 L 95 11/25/20 06:12 60 11/25/20 03:00 37.1 C 70 18 127/57 L 93 11/25/20 00:00 73 115/49 L 94 11/24/20 23:00 36.9 C 60 61 18 102/43 L 96 PG Care Time/CCT Total # of Minutes Spent Total Time Spent with Patient: Total time spent is greater than 50% in coordination of care (as documented) at patient's floor/unit and/or counseling patient: Coding Level of Care Code 55347 Subseq Hosp Care Lvl 2 Diagnoses Gross hematuria R31.0 Acute urinary retention R33.8
[2020-11-25 09:45] LABS: BUN Creatinine Ratio 5.6 (10-20); Calcium 8.5 mg/dl (8.5-10.1); Est GFR (African American) 12.6 ml/min; Est GFR (Non-African American) 10.9 ml/min; Potassium 4.3 mmol/L (3.5-5.1)
--- NOTE | 2020-11-25 10:02 | Medical Student Progress Note ---
Date of Service November 25, 2020 Assessment & Plan (1) Gross hematuria: Plan: 80 yo M with PMH of BPH with LUTS, kidney transplant recipient, kidney failure, ESRD on HD on Sunday//Sunday, gout, diabetes mellitus, pacemaker presence, hypertension, hyperlipidemia, GERD, depression, edema, and recent diagnosis with Sheri glabrata urine culture 11/15, admitted for acute urinary retention. Acute urinary retention with gross hematuria -Hx of BPH w/LUTS and s/p recent outpatient cystoscopy on 11/15 -CT reviewed - Irregular hyperdensity in the bladder, consistent with hemorrhagic product/clot burden. -POD#1 s/p cystoscopy, clot evacuation with Dr. Pereira -UCx 11/15 Sheri glabrata, UCx 11/22 still pending - continue ceftriaxone 2,000 mg daily -Jimenez catheter intact and draining clear urine -Hold fluconazole for now until UCx returns -Urology continuing to follow Anemia - Hemoglobin 6.4 today, received 2 PRBCs this AM - Had received 1 unit PRBC yesterday for hemoglobin 6.9 - repeat CBC in am Kidney failure on Dialysis -Kidney failure/kidney transplant recipient/ESRD on HD - Typically dialysis on , , Sun - Hemodialysis today with Epogen 20046 units x 1 dose and transfusion during -continue on home dose of CellCept and Prograf, dosing medications for GFR less than 10, left arm nephrology precaution for future AV fistula. -Nephrology continuing to follow Hypertension - continue amlodipine, carvedilol -Hold torsemide Gout -Continue allopurinol, but adjust dosing for renal clearance Diabetes -Continue NPH 15 units subq twice daily -Hold regular human sliding scale -Place on Accu-Cheks before meals and at bedtime with NovoLog coverage per scale -hemoglobin A1c 5.9 Seizure -Continue primidone and lamotrigine VTE Prophylaxis: SCDs, holding chemoprophylaxis Code Status: Full code FEN/GI: Heart healthy Dispo: MedSurg telemetry Admission and Anticipated Discharge Date Admission Date: November 23, 2020 Results & Data ([facility]) Vital Signs (Past 12 Hours) Vital Signs Temp Pulse Pulse Resp BP Pulse Ox 11/25/20 07:38 36.8 C 65 14 103/52 L 95 11/25/20 06:12 60 11/25/20 03:00 37.1 C 70 18 127/57 L 93 11/25/20 00:00 73 115/49 L 94 11/24/20 23:00 36.9 C 60 61 18 102/43 L 96
--- NOTE | 2020-11-25 10:15 | Nephrology Progress Note ---
Date of Service November 25, 2020 Assessment & Plan (1) ESRD on hemodialysis: (2) Kidney transplant recipient: (3) Hypertension: (4) Acute urinary retention: (5) Gross hematuria: (6) Anemia: Plan: ESRD on hemodialysis after failed renal transplant, dialysis on Sunday, , Sunday at [facility]. Admitted with urinary retention and gross hematuria with history of BPH. Jimenez catheter was placed and needed repeated irrigation due to blood clot. hemoglobin was 6.9, received blood transfusion. Had cystoscopy, bladder irrigation and removal of blood clot. Jimenez catheter was removed on 11/24/2020. Had Dialysis yesterday, currently volume status, electrolyte, blood pressure acceptable. Hemoglobin improved to 8.8 after 2 units of PRBC yesterday. Received Epogen 14998 units x 1 dose on 11/24/2020. -- Plan for dialysis tomorrow -- continue on home dose of CellCept and Prograf -- dose medications for GFR less than 10, left arm nephrology precaution for future AV fistula. will follow Admission and Anticipated Discharge Date Admission Date: November 23, 2020 Subjective Francis has been feeling much better, pain and discomfort Fort resolved after Jimenez catheter was removed. However, he did not void spontaneously yet. Had dialysis yesterday, currently electrolyte, blood pressure, volume status acceptable. Review of Systems Review of Systems: detailed review of system was negative except mentioned in HPI. Physical Exam Constitutional: well developed and well nourished; no acute distress Respiratory: normal respiratory effort, lungs clear to auscultation Cardiovascular: RRR, no murmur, no edema Neurologic: moves all extremities and awake; not confused Psychiatric: A+Ox3, euthymic affect Results & Data ([facility]) Vital Signs (Past 12 Hours) Vital Signs Temp Pulse Pulse Resp BP Pulse Ox 11/25/20 07:38 36.8 C 65 14 103/52 L 95 11/25/20 06:12 60 11/25/20 03:00 37.1 C 70 18 127/57 L 93 11/25/20 00:00 73 115/49 L 94 11/24/20 23:00 36.9 C 60 61 18 102/43 L 96 PG Care Time/CCT Total # of Minutes Spent Total Time Spent with Patient: Total time spent is greater than 50% in coordination of care (as documented) at patient's floor/unit and/or counseling patient: Coding Level of Care Code 73452 Subseq Hosp Care Lvl 2 Diagnoses ESRD on hemodialysis N18.6; Z99.2 Kidney transplant recipient Z94.0 Hypertension I10 Acute urinary retention R33.8 Gross hematuria R31.0 Anemia D64.9
--- NOTE | 2020-11-25 15:01 | Discharge Summary ---
Date of Service November 25, 2020 Admission HPI Per Admitting Provider The patient is a 80-year-old male with a past medical history include noting BPH with LUTS, kidney transplant recipient, kidney failure, ESRD on HD on Sunday//Sunday, gout, diabetes mellitus, pacemaker presence, hypertension, hyperlipidemia, GERD, depression, edema, and recent diagnosis with Sheri glabrata UTI. The patient presents with symptoms as noted above. Urology Dr. Bravo was consulted by the ED, and he advised admission to medicine service, and that he would see the patient in the a.m. Admission Exam Per Admitting Provider The patient is awake, alert and oriented 3, well developed and well nourished, normocephalic and atraumatic, lying in bed and in no acute distress. HEENT--PERRL, EOMI, mucous membranes and oropharynx normal. Neck--supple. No JVD. No bruits. Thyroid normal, trachea midline, no adenopathy. Heart--normal S1 and S2. No murmurs, rubs or gallops. Lungs--clear bilaterally, no respiratory distress, no accessory muscle use. Abdomen--normal bowel sounds and soft. Mild suprapubic tenderness. Extremities--Trace bilateral pretibial pitting edema Dermatologic--normal skin turgor, normal color, no abnormal lymph nodes, no rash. Neurologic--cranial nerves II through XII grossly intact. Rheumatologic--normal range of motion. Psychiatric--normal affect. Principal Diagnosis gross hematuria Discharge Exam GENERAL: No acute distress. Well developed and well nourished. Vital signs reviewed as above. EYES: EOMI. Anicteric sclerae. HENT: Moist mucous membranes. RESPIRATORY: Clear to auscultation bilaterally. No wheezing, rales, or rhonchi. CARDIOVASCULAR: Regular rate and rhythm. No murmurs. ABDOMEN: Soft, non-tender and non-distended. Normal bowel sounds. EXTREMITIES: No edema. Non-tender. SKIN: Warm, dry. NEUROLOGIC: A/O x3. No focal neurological deficits. PSYCHIATRIC: Cooperative. Appropriate mood and affect. Discharge Data Allergies Allergy/AdvReac Type Severity Reaction Status Date / Time lisinopril Allergy Unknown ORAL EDEMA Verified 11/23/20 00:58 Bdxxofw-Hxr-Atg Reductase AdvReac Intermediate MUSCLE Verified 11/23/20 00:58 Inhibitor WEAKNESS NSAIDS (Non-Steroidal AdvReac Unknown KIDNEY Verified 11/23/20 00:58 Anti-Inflamma TRANSPLANT Consultations 11/23/20 00:50 ED Decision to Admit Stat 11/23/20 03:51 Consult Nephrology Routine Consult Urology Routine Procedures Performed Operation Date: 11/23/20 08:20 Actual Procedures p Cystoscopy, Clot Evacuation(Not Applicable) - William Pereira MD Ordered Studies 11/23/20 05:27 CT abd pelvis wo con Urgent Hospital Course (1) Gross hematuria: 80 yo M with PMH of BPH with LUTS, kidney transplant recipient, kidney failure, ESRD on HD on Sunday//Sunday, gout, diabetes mellitus, pacemaker presence, hypertension, hyperlipidemia, GERD, depression, edema, and recent diagnosis with Sheri glabrata urine culture 11/15, admitted for acute urinary retention. Acute urinary retention with gross hematuria -Hx of BPH w/LUTS and s/p recent outpatient cystoscopy on 11/15 -CT reviewed - Irregular hyperdensity in the bladder, consistent with hemorrhagic product/clot burden. -POD#2 s/p cystoscopy, clot evacuation with Dr. Pereira; perez catheter removed on day prior to discharge; patient did not void prior to discharge but bladder scan showed no urine - Return precautions provided to patient on discharge if concerns of recurrent urinary retention -UCx 11/15 Sheri glabrata, UCx 11/22 negative -Received ceftriaxone 2,000 mg daily while admitted - Plan for cefdinir 300mg po after dialysis for the next 6 treatments as well as fluconazole 200mg po after dialysis for the next 6 treatments - Follow up with urology as outpatient Anemia - Received a total of 3 units PRBCs during admission - Hgb stable on day of discharge at 8.8 - Recommend repeat CBC within 1 week with PCP Kidney failure on Dialysis -Kidney failure/kidney transplant recipient/ESRD on HD - Typically dialysis on Sun; received dialysis on Sunday during admis [facility]; Received Epogen 25208 units x 1 dose on 11/24/2020 - [facility] unable to schedule patient for dialysis on Sunday, 11/26 --> patient to resume normal schedule of dialysis on Monday 11/27 -continue on home dose of CellCept and Prograf, dosing medications for GFR less than 10, left arm nephrology precaution for future AV fistula. -Nephrology consulted during admission. Appreciated their assistance. Hypertension - continue amlodipine, carvedilol Gout -Continue allopurinol, but adjust dosing for renal clearance Diabetes - resume home medications on discharge -hemoglobin A1c 5.9 Seizure -Continue primidone and lamotrigine (2) Anemia: (3) ESRD on hemodialysis: (4) Sheri glabrata infection: (5) Acute urinary retention: (6) Benign prostatic hyperplasia (BPH) with urinary urgency: (7) Dysuria: (8) Kidney failure: (9) Hypertension: (10) Diabetes: Total Time Total Time Spent Total Time Spent (In Minutes): <30 Discharge Plan Discharge Items Patient Disposition: Home - Self-Care Reason For Visit: GROSS HEMATURIA, URINARY RETENTION Discharge Diagnosis: gross hematuria, urinary retention Condition on Discharge: Good Activity: Resume your previous activity Non-emergency contact: Primary Care Provider, Executive Asst and Urologist Call non-emergency contact if: you have any medication questions and your symptoms worsen Follow-up/Referrals: Henny Stevens M.D. [Primary Care Provider] - (PLEASE CONTACT YOUR PRIMARY CARE PROVIDER TO SCHEDULE A FOLLOW-UP DISCHARGE APPOINTMENT WITHIN 7-10 DAYS) Diet: Carb Consistent or DM2 and Heart Healthy Addtl Attending Provider Instructions: You were admitted for hematuria (blood in the urine) and urinary retention. You required a clot evacuation from the bladder during hospitalization. You also had anemia (low blood counts) which required blood transfusions during hospitalization. You have done well. Please take the following medications as prescribed: 1. Cefdinir -- take 1 tablet by mouth after dialysis treatments for the next 6 treatments 2. Fluconazole -- take 1 tablet by mouth after dialysis treatments for the next 6 treatments You should have dialysis tomorrow and then can continue on regularly scheduled dialysis. You should follow up with your bicycle repair technician as previously scheduled. Please also follow up with urology as scheduled. Follow up with your primary care doctor in 2-3 days. Return to the ER for recurrent difficulty urination, blood in the urine, fever, chills, or any other concerning symptoms. Pending Studies at Discharge: No Stand-Alone Forms: My [employer], Smoking Cessation Medications and DC Order Prescriptions: New cefdinir 300 mg capsule 300 mg PO DIRECTED 6 Days Qty: 6 RF: 0 fluconazole 200 mg tablet 200 mg PO DIRECTED Qty: 6 RF: 0 Continued finasteride 5 mg tablet 5 mg PO DAILY Qty: 90 RF: 3 fluconazole [Diflucan] 200 mg tablet 100 mg PO DAILY Qty: 4 RF: 0 mycophenolate mofetil [CellCept] 250 mg capsule 750 mg PO BID RF: 0 tacrolimus [Prograf] 1 mg capsule 2 mg PO Q12H RF: 0 torsemide 20 mg tablet 40 mg PO DAILY RF: 0 omeprazole 20 mg capsule,delayed release(DR/EC) 20 mg PO DAILY RF: 0 allopurinol 300 mg tablet 150 mg PO DAILY RF: 0 ezetimibe [Zetia] 10 mg tablet 10 mg PO DAILY RF: 0 tamsulosin 0.4 mg capsule 0.4 mg PO DAILY RF: 0 carvedilol 3.125 mg tablet 3.125 mg PO DAILY RF: 0 amlodipine 5 mg tablet 5 mg PO DAILY RF: 0 sertraline [Zoloft] 25 mg tablet 25 mg PO DAILY RF: 0 sulfamethoxazole-trimethoprim [Bactrim] 400-80 mg tablet 1 tab PO 3XWK RF: 0 lamotrigine 25 mg tablet 50 mg PO BID RF: 0 primidone 50 mg tablet 100 mg PO BID RF: 0 aspirin [Adult Low Dose Aspirin] 81 mg tablet,delayed release (DR/EC) 81 mg PO DAILY RF: 0 cholecalciferol (vitamin D3) 50 mcg (2,000 unit) capsule 50 mcg PO DAILY RF: 0 Novolin R Flexpen 100 unit/mL (3 mL) Insulin Pen 1 sliding scale dose SUBCUT USEASDIRECTD RF: 0 Novolin N Flexpen 100 unit/mL (3 mL) Insulin Pen 15 unit SUBCUT BID RF: 0 Discharge Orders: Discharge Order (Routine); Ordered 11/25/20 Ordered By: Lilo Ray Admission Data Admit Date/Time: 11/23/20 02:57 Attending Provider: Eduar Malone Admit Provider: Froylan Abdul Primary Care Provider: Henny Stevens Other Providers: Froylan Abdul ; Neeta Gayle ; Aneesh Bravo Other Interventions: Discharge Summary Assessment (RN) Last Done: 11/25/20 16:00 Supervising Physician Co-Signing Physician Notes I personally examined the patient and verified all melendez points of history and exam, discussed case, and agree with decision making with Dr Ray Feeling better. Since Perez was removed his pain is much improved. Got out of bed and walking around okay. Has not yet voidedbut he notes it is fairly common for him to not void the day after dialysis for quite a while. He is having no significant bladder pain. No hematuria. He would very much like to go home. Vitals noted, in general he is awake and alert pleasant no distress. HEENT normocephalic atraumatic mucous membranes moist. Breathing unlabored no accessory muscle use good effort. Skin shows no rashes no pallor or icterus. Neuro without focal deficits. Anemia due to acute blood loss and ESRDacute blood loss due to hematurianow stable, did require 3 units transfusion during his stay. Gross hematuriaappears to be due to hemorrhagic cystitis, confirmed by cystoscopy. Culture did not show anythinggiven that bacterial would certainly be far more commoncontinue treatment with cephalosporin (cefdinir to complete about 2 weeks of therapy) but given that he did grow Sheri last week, and he is quite immune compromised given solid organ transplant/immunosuppressive'sobligated to treat for the yeast as well fluconazole to complete about 2 weeks of therapy as well. Was on SCDs for DVT prophylaxis given his hematuria precluding pharmacologic prophylaxis. Now appears stable for home. Resident Activity Tracking Resident Involvement: Resident Care Provided Care Provided: Adult Hospital Medicine
--- NOTE | 2020-11-25 20:36 | Billing Data ---
Date of Service November 25, 2020 Coding Level of Care Code D/C DAY MANAGEMENT <30 MINS
== END 2020-11-25 17:25 | disposition home or self-care (01) | DRG 689 ==
LOC: ED 20:33 → 2W 11-23 02:57 → SUATTDRO 11-23 02:57 → 2W 11-23 03:34